=== PATIENT | female | born 1960 | race Caucasian/White ===

== ENCOUNTER 2019-06-08 08:42 | Emergency (ER) | payer BC, SELFPAY ==
[2019-06-08 08:46] VITALS: BP 137/87; PULSE 96; RESP 18; TEMP 36.4; O2SAT 100
[2019-06-08 09:07] LABS: Clarity Clear (Clear); Leukocyte Esterase Color Interference (Negative); Nitrite Color Interference (Negative); Specific Gravity 1.012 (1.005-1.025)
[2019-06-08 09:08] LABS: Bilirubin Color Interference (Negative); Blood Color Interference (Negative); Glucose Color Interference mg/dL (Negative); Ketones Color Interference mg/dL (Negative); Urobilinogen Color Interference EU/dL (Up TO 0.2)
--- NOTE | 2019-06-08 09:08 | ED.GENADUL_ITS ---
Discharge Plan Disposition Patient Disposition: HOME Condition: Good Discharge Details Chief Complaint: FlankPain Clinical Impression: Acute pyelonephritis Primary Care Provider: Unknown,Unknown ED Provider: Nidhi Pena Home Meds and New Rx's Prescriptions: New cephalexin [Keflex] 500 mg capsule 500 mg PO QID Qty: 40 RF: 0 phenazopyridine [Pyridium] 200 mg tablet 200 mg PO TID PRN (Reason: pain) Qty: 6 RF: 0 Discharge Instructions Instructions: Urinary Tract Infection in Women (ED) Additional Instructions: Drink plenty of water. Rest activities as tolerated. Use antibiotics as prescribed. Next line follow-up promptly with your primary care doctor for reevaluation. Use Pyridium for comfort as discussed for the next 2 days. This will stain your urine a reddish-orange color. Urine culture pending. Return for any worsening, alarming symptoms or concerns sooner if needed. Make follow-up appoint with your primary care doctor for the next 2 to 3 days for reevaluation. Discharge Data Discharge Date/Time-TO BE ENTERED AT DEPARTURE: 06/08/19 11:41 Medical Decision Making Very pleasant 58-year-old woman who presents for left flank pain. Patient reports onset of urinary urgency and frequency, dysuria noted last evening associated with mild suprapubic discomfort. Patient reports she awoke this morning with onset of left flank pain. Patient reports the flank pain is quite sharp and uncomfortable. Patient has no history of urinary infection or kidney stone. Patient denies ill feeling, fever, chills, nausea, vomiting. Eating and drink without difficulty. Patient's urinalysis reveals a urinary tract infection which is consistent with patient's history. CT scan ordered. Toradol provided for comfort as well as IV fluid. Patient feeling significantly improved after Toradol. CT scan reveals normal kidneys with no obvious hydronephrosis or hydroureter. No stones present. Ureters are somewhat limited without contrast evaluation. Patient has incidental findings of an enlarged fibroid uterus. Given lack of obstruction noted on CT scan I do feel it is appropriate to treat this patient for an acute pyelonephritis. Patient has no systemic symptoms at this time therefore I feel outpatient management is totally appropriate. Nuha ent was provided Rocephin 1 g in the emergency room and plan of care includes a prescription for Keflex 4 times daily in addition to Pyridium for comfort. Patient agrees with this plan of care. The patient was stable and requested discharge. Prior to discharge, my usual and customary return precautions were reviewed with the patient - this included follow-up instructions and reasons to return to the Emergency Department if conditions worsens, does not improve as expected, or other new concerns arise. HPI General Date/Time Provider Initiated Documentation: 06/08/19 09:04 . HPI Narrative: This is a 58-year-old patient who is quite pleasant who presents for complaints of left flank pain which began today. Patient reports this pain was preceded by urinary discomfort, urgency and frequency with very mild suprapubic discomfort yesterday. Patient reports she did take rahu-sha-rudbifv urinary tract infection testing which was positive as well as she began Azo [id number]-[id number] which she reports was somewhat relieving of her pain and allowed her some sleep last night. Patient denies fevers, chills, nausea, vomiting associated. Patient denies malaise or ill feeling. Patient is eating and drinking without difficulty. No significant change in bowel movements. Patient denies hematuria. No vaginal discharge or bleeding. Patient recently finished menstruating approximately 1 week ago. Patient denies any other concerns or complaints at this time. No history of UTI in the past Related Data Home Medications Medication Instructions Recorded Confirmed cephalexin [Keflex] 500 mg PO QID #40 cap 06/08/19 phenazopyridine [Pyridium] 200 mg PO TID PRN #6 tab 06/08/19 Previous Rx's Medication Instructions Recorded cephalexin [Keflex] 500 mg PO QID #40 cap 06/08/19 phenazopyridine [Pyridium] 200 mg PO TID PRN #6 tab 06/08/19 Allergies Allergy/AdvReac Type Severity Reaction Status Date / Time No Known Allergies Allergy Unverified 06/08/19 08:49 General Stated Complaint: FlankPain FAHEEM: 3 Review of Systems All systems reviewed & are unremarkable except as noted in HPI and below Constitutional Constitutional: Denies chills, Denies fatigue, Denies fever(s), Denies headache(s) and Denies malaise ENT Ears, Nose, Mouth, and Throat: Denies headache(s) Gastrointestinal Gastrointestinal: Denies abdominal pain, Denies diarrhea, Denies nausea and Denies vomiting Genitourinary Genitourinary: Reports dysuria, Reports flank pain, Reports urinary urgency and Denies vaginal discharge Neurologic Neurologic: Denies headache(s) Endocrine Endocrine: Denies fatigue [facility] Surgical History (Updated 05/02/18 @ 14:37 by [employer]) Augmentation mammoplasty (~1993) Dilation and curettage after loss Family History Mother Diabetes Colon cancer Social History Smoking/Tobacco Use Status: Never Alcohol Intake: current Alcohol Intake frequency: a few times a month Drug use: Never Substance use type: does not use Do you feel safe at home: Yes Do you feel safe in your relationship?: Yes Exam Narrative Exam Narrative: CONST: Healthy appearing patient, in no acute distress. Well hydrated. Alert and alert. NECK: Normal visual inspection. FROM. No lymphadenopathy. Trachea midline. No Midline tenderness. CHEST: Normal insepection of the chest. RESP: Normal respiratory effort. Speaking full sentences. No cough. No wheezing. No retractions. Clear to auscaltation. Breath sound equal and present bilaterally. CARDIO: No JVD. Normal PMI. Regular Rate. Regular Rhythm. Normal peripheral pulses. GI: Normal inspection of abdomen. No distension. Soft. Nontender. Bowel sounds present in all 4 quadrants. No rebound. No gaurding. Back: Left CVA tenderness noted on exam. No right CVA tenderness MUSCULOSKELETAL: Normal Gait. FROM of all extremities. Distal neurovascularly intact. Sensation intact distally. SKIN: Normal. Dry. No rashes. NEURO: Alert and awake. Speech clear. PSYCH: Normal affect. Cooperative. Course Vital Signs Vital signs: Vital Signs Temperature 36.4 C 06/08/19 08:46 Pulse 96 H 06/08/19 08:46 Respiratory Rate 18 06/08/19 08:46 Blood Pressure 137/87 06/08/19 08:46 Pulse Oximetry 100 06/08/19 08:46 Temperature 36.4 C 06/08/19 08:46 Temperature Source Skin 06/08/19 08:46 Pulse 96 H 06/08/19 08:46 Respiratory Rate 18 06/08/19 08:46 Respiratory Effort Non-Labored 06/08/19 08:50 Blood Pressure 137/87 06/08/19 08:46 Blood Pressure Position Sitting 06/08/19 08:46 Pulse Oximetry 100 06/08/19 08:46 Oxygen Delivery Method Room Air 06/08/19 08:46 Oxygen Flow Rate 0 06/08/19 08:46 Pain Level 7 06/08/19 08:50 Lab/Test Results Lab/Test Results: Laboratory Tests Range/Units 06/08/19 08:57 Urine Color (Yellow) [place] Urine Clarity (Clear) Clear Urine pH Not Applicable Ur Specific [place] (1.005-1.025) 1.012 Urine Protein (Negative) mg/dL Color interference Urine Ketones (Negative) mg/dL Color interference Urine Blood (Negative) Color interference Urine Nitrite (Negative) Color interference Urine Bilirubin (Negative) Color interference Urine Urobilinogen (Up TO 0.2) EU/dL Color interference Ur Leukocyte Esterase (Negative) Color interference Urine Glucose (Negative) mg/dL Color interference
[2019-06-08 09:16] LABS: Bacteria Moderate HPF (Negative); C & S Indicated? Yes; Casts Negative LPF (Negative); Crystals Negative HPF (Negative); Epithelial Cells Few HPF (Negative); Mucus Trace (Negative); Other Cells Few Renal (Negative); WBC >50 HPF (0-5)
[2019-06-08] MEDS: Ketorolac 15 MG/ML VIAL IVP (09:22)
[2019-06-08] MEDS: Normal Saline Flush 10 ML SYR IVP (09:23)
[2019-06-08] MEDS: Normal Saline 1,000 ML 1000 ML IV (09:23)
[2019-06-08 09:25] LABS: Abs Immature Grans 0.02 k/cumm (0.0-0.09); Absolute Basophil Count 0.04 k/cumm (0.0-0.2); Absolute Eosinophil Count 0.05 k/cumm (0.0-0.7); Absolute Neutrophil Count 7.06 k/cumm (1.2-6.7); Basophils % 0.4; Eosinophils % 0.6; HCT 33.1 % (36.0-46.0); HGB 10.6 g/dL (12.0-15.5); Immature Grans % 0.2; Lymphocytes % 12.1; Mean Corpuscular Hemoglobin 25.6 pg (27.0-33.0); Mean Platelet Volume 9.2 fL (8.0-11.0); Monocytes % 8.8; Neutrophils % 77.9; Platelet Count 400 x1000/uL (130-400); RBC 4.14 m/cumm (4.00-5.20); White Blood Cell Count 9.07 k/cumm (4.4-10.8)
[2019-06-08 09:37] LABS: ALT 18 U/L (14-59); AST 16 U/L (15-37); Albumin 4.1 g/dL (3.4-5.0); Alkaline Phosphatase 47 U/L (46-116); Anion Gap 9.8 mmol/L (3-11); BUN 16 mg/dL (7-18); Bilirubin, Total 0.3 mg/dL (0.2-1.0); CO2 28.2 mmol/L (21.0-32.0); CREATININE 0.93 mg/dL (0.55-1.02); Calcium 9.2 mg/dL (8.5-10.1); Chloride 102 mmol/L (98-107); Glucose 92 mg/dL (74-106); Potassium 3.5 mmol/L (3.5-5.1); Sodium 140 mmol/L (136-145); Total Protein 8.2 g/dL (6.4-8.2)
[2019-06-08] MEDS: cefTRIAXone 1 GM/50 ML BAG 100 GM (09:48)
--- NOTE | 2019-06-08 10:00 | DI.CT_ITS ---
EXAM: CT ABDOMEN PELVIS WO CLINICAL HISTORY: left flank pain TECHNIQUE: Noncontrast COMPARISON: No exams were available for comparison FINDINGS: No renal, ureteral or bladder calculi are seen. There is no evidence of hydronephrosis. The bladde r is unremarkable. The uterus is markedly enlarged, consistent with fibroids. Lung bases are clear. The heart size is normal. The liver, gallbladder, spleen, pancreas and adrenals are unremarkable. There is no bowel dilatation or inflammatory change. The appendix appears normal. IMPRESSION: Enlarged uterus presumably secondary to multiple fibroids. No acute abnormality is seen.
--- NOTE | 2019-06-08 10:25 | DI.VRAD_ITS ---
PROCEDURE INFORMATION: Exam: CT Abdomen And Pelvis Without Contrast Exam date and time: 06/08/2019 9:09 AM Age: 58 years old Clinical history: Other: Left flank pain TECHNIQUE: Imaging protocol: Computed tomography of the abdomen and pelvis without contrast. Radiation optimization: All CT scans at this facility use at least one of these dose optimization techniques: automated exposure control; mA and/or kV adjustment per patient size (includes targeted exams where dose is matched to clinical indication); or iterative reconstruction. COMPARISON: No relevant prior studies available. FINDINGS: Liver: Unremarkable. No mass. Gallbladder and bile ducts: Unremarkable. No calcified stones. No ductal dilation. Pancreas: Unremarkable. No ductal dilation. Spleen: Unremarkable. No splenomegaly. Adrenals: Unremarkable. No mass. Kidneys and ureters: The kidneys are normal for the noncontrast appearance. There is no hydronephrosis or hydroureter. No stones. the ureters are difficult to evaluate without the use of contrast. Stomach and bowel: Unremarkable. No obstruction. No mucosal thickening. Appendix: No evidence of appendicitis. Intraperitoneal space: Unremarkable. No free air. No significant fluid collection. Vasculature: Scattered pelvic phleboliths. Lymph nodes: Unremarkable. No enlarged lymph nodes. Bladder: Unremarkable as visualized. Reproductive: Markedly enlarged fibroid uterus with limited evaluation due to lack of intravenous contrast. The largest fibroid appears to measure approximately 10 cm in axial dimension. The adnexa appear normal. Bones/joints: Unremarkable. No acute fracture. Soft tissues: Unremarkable. IMPRESSION: 1. Limited evaluation of an enlarged fibroid uterus. 2. No apparent urolithiasis. Dictated and Authenticated by: Ever Leong MD. Ordering:MARKO Terrell MD
[2019-06-08 11:37] VITALS: BP 124/72; PULSE 82; RESP 18; TEMP 36.6; O2SAT 100
== END 2019-06-08 11:41 | disposition home or self-care (01) ==
PROVIDERS: Emergency Provider Physician Assistant
DX: M54.5 Low back pain (principal); R30.0 Dysuria; R35.0 Frequency of micturition; N10 Acute pyelonephritis; B96.20 Unspecified Escherichia coli [E. coli] as the cause of diseases classified elsewhere
CPT/HCPCS: 36415; 80053; 87077; 96361; 96365; 96375; 99284; 74176; 81003; 81015; 85025; 87086; 87186; J0696; J1885

== ENCOUNTER 2019-07-15 12:07 | Outpatient (REF) | payer BC, SELFPAY ==
[2019-07-15 19:47] LABS: Anion Gap 9.6 mmol/L (3-11); BUN 12 mg/dL (7-18); CO2 27.4 mmol/L (21.0-32.0); CREATININE 0.69 mg/dL (0.55-1.02); Calcium 8.6 mg/dL (8.5-10.1); Calculated LDL 105 mg/dL; Chloride 105 mmol/L (98-107); Cholesterol 180 mg/dL (<200); Glucose 83 mg/dL (74-106); HDL Cholesterol 60 mg/dL (40-60); Potassium 3.7 mmol/L (3.5-5.1); Sodium 142 mmol/L (136-145); TSH (W/Ref FT4) 0.89 uIU/mL (0.36-3.74); Triglyceride 76 mg/dL (<150)
== END 2019-07-15 12:27 ==
LOC: NCHCN 12:07
PROVIDERS: Visit Provider Nurse Practitioner Family
DX: Z00.00 Encounter for general adult medical examination without abnormal findings (principal); Z13.29 Encounter for screening for other suspected endocrine disorder; Z13.220 Encounter for screening for lipoid disorders; Z13.228 Encounter for screening for other metabolic disorders
CPT/HCPCS: 80048; 80061; 84443

== ENCOUNTER 2019-08-12 01:35 | Outpatient (CLI) | payer BC, SELFPAY ==
--- NOTE | 2019-08-12 13:23 | DI.MAMMO_ITS ---
EXAM: MAMMO SCREENING CLINICAL HISTORY: SCREENING, Z12.39. TECHNIQUE: Full field digital CC and MLO mammographic images were obtained with 3D tomosynthesis and utilizing computer aided detection (CAD). COMPARISON: . 2009 through 2015 FINDINGS: Breast Density - Category C - Heterogeneously dense tissue which may decrease the sensitivity of the mammogram. Implant displaced views were performed in addition to the routine views the bilateral failing implant s are intact and unchanged. Masses/Architectural Distortion: None seen. Microcalcifications: No suspicious pleomorphic-type calcifications are seen. Skin Thickening/Nipple Retraction: None. Axilla: Unremarkable. IMPRESSION: 1. BI-RADS category 1, negative. No significant interval change with no specific features of maligna ncy noted. 2. Unless there is more urgent need, screening mammography is recommended, as per [employer] guidelines. A negative radiographic report should not delay biopsy if a dominant or clinically suspicious mass is present. Up to ten percent of cancers are not identified on mammography. A negative report may reinforce clinical impression. Adenosis and dense breasts may obscure an underlying neoplasm. False positive reports average 6 to 10%. Patient will receive a letter notifying them of these results.
== END 2019-08-12 01:55 ==
PROVIDERS: PCP Nurse Practitioner Family; Visit Provider Nurse Practitioner Family
DX: Z12.31 Encounter for screening mammogram for malignant neoplasm of breast (principal)
CPT/HCPCS: 77063; 77067

== ENCOUNTER 2019-08-21 02:23 | Outpatient (CLI) | payer BC, SELFPAY ==
--- NOTE | 2019-08-21 12:58 | DI.US_ITS ---
EXAM: US PELVIS TRANSVAGINAL CLINICAL HISTORY: ABNORMAL UTERINE BLEEDING, FIBROID UTERUS, D25.9 LEIOMYOMA OF UTERUS. TECHNIQUE: Ultrasound of the pelvic, both abdominal and transvaginal was performed using standard pr otocol. COMPARISON: CT ABDOMEN PELVIS WO from 06/08/2019 FINDINGS: KIDNEYS: Kidneys are symmetric in size. No evidence of renal calculi. No evidence of hydronephrosis. No renal mass or cyst identified. UTERUS: Position: Anteverted. Size: 13.1 x 8.4 x 8.6 cm Endometrium: There is a 9.3 x 8.3 x 7.6 cm mass centered in the fundal endometrium. This may represe nt a uterine fibroid but an endometrial mass cannot be excluded. Myometrium: See above Cervix: Cervical nabothian cysts. OVARIES: Right: Not visualized transabdominally or transvaginally. No adnexal masses identified. Left: Not visualized transabdominally or transvaginally. No adnexal masses identified. CUL-DE-SAC: Free fluid: None. IMPRESSION: 1. Normal sonographic appearance of the kidneys. 2. Enlarged uterus with a 9.3 x 8.3 x 7 cm mass in the fundal region. This may represent a uterine f ibroid but an endometrial mass cannot be excluded. MRI may be considered for further evaluation. 3. Ovaries not visualized transabdominally or transvaginally.
== END 2019-08-21 02:43 ==
PROVIDERS: PCP Nurse Practitioner Family; Visit Provider Obstetrics & Gynecology Gynecology
DX: N93.9 Abnormal uterine and vaginal bleeding, unspecified (principal); D25.9 Leiomyoma of uterus, unspecified; N85.2 Hypertrophy of uterus
CPT/HCPCS: 76830; 76856

== ENCOUNTER 2019-08-30 16:00 | Outpatient (REF) | payer BC, SELFPAY ==
--- NOTE | 2019-08-30 15:20 | ENDOMET_PTH ---
PATIENT: Anel Degroot LOC: [facility] U#:[id number] AGE/SX: 58/F ROOM: RE08/30/[address]: Marily Hart : 1960 BED: DIS: 08/30/2019 SPEC #: [id number] RECD: 08/30/19 17:21 STATUS: JUNAID RENellie #: [id number] JAY: 08/30/19 15:[address]: Marily Hart DEPT: Surgical Specimen RECD BY: Debbie Kong ENTERED: 08/30/19 17:22 SP TYPE: Endomet OTHR DR: Analy Crowe Tissues: 1 - ENDOMETRIUM BX/BEKAHETTE Procedures: GROSS AND MICRO LEVEL 4 Comments: [id number]
== END 2019-08-30 16:20 ==
LOC: LBN 16:00
PROVIDERS: PCP Nurse Practitioner Family; Visit Provider Obstetrics & Gynecology Gynecology
DX: N85.01 Benign endometrial hyperplasia (principal); N93.9 Abnormal uterine and vaginal bleeding, unspecified
CPT/HCPCS: 88305

== ENCOUNTER 2019-10-18 16:06 | Outpatient (REF) | payer BC, SELFPAY ==
[2019-10-21 18:58] LABS: SARS-CoV-2 RNA Undetected (Undetected); SARS-CoV-2 Specimen Source Nasopharynx
== END 2019-10-18 16:26 ==
LOC: NCHCN 16:06
PROVIDERS: PCP Nurse Practitioner Family; Visit Provider Physician Assistant
DX: R05 Cough (principal)
CPT/HCPCS: U0003

== ENCOUNTER 2020-08-07 15:18 | Outpatient (REF) | payer BC, SELFPAY ==
--- NOTE | 2020-08-07 09:30 | PAPFT_PTH ---
PATIENT: Anel Degroot LOC: [facility]#:[id number] AGE/SX: 59/F ROOM: RE08/07/[address]: Analy Crowe : 1960 BED: DIS: 08/07/2020 SPEC #: [id number] RECD: 08/07/20 17:05 STATUS: JUNAID SIMEON #: [id number] JAY: 08/07/20 09:[address]: Analy Crowe DEPT: [facility] Cytology RECD BY: Debbie Kong Tissues: 1 - CX/ENDOCX FOR PAP SMEARS Procedures: PAP THIN PREP/UVM Screening HPV DNA PROBE Comments: [id number] (CHLAMYDIA/GC) (HPV 16/ 18/45)
[2020-08-10 14:25] LABS: Chlamydia Result Negative (Negative); GC Result Negative (Negative)
== END 2020-08-07 15:38 ==
LOC: NCHCN 15:18
PROVIDERS: PCP Nurse Practitioner Family; Visit Provider Nurse Practitioner Family
DX: Z12.4 Encounter for screening for malignant neoplasm of cervix (principal); Z00.00 Encounter for general adult medical examination without abnormal findings; Z11.51 Encounter for screening for human papillomavirus (HPV); R87.810 Cervical high risk human papillomavirus (HPV) DNA test positive; Z11.3 Encounter for screening for infections with a predominantly sexual mode of transmission
CPT/HCPCS: 87491; 87591; 88142; 87624

== ENCOUNTER 2021-08-26 18:13 | Outpatient (REF) | payer BC, SELFPAY ==
--- NOTE | 2021-08-26 16:00 | PAPFT_PTH ---
PATIENT: Anel Degroot LOC: [facility] U#:[id number] AGE/SX: 60/F ROOM: RE08/26/[address]: Analy Crwoe : 1960 BED: DIS: 08/26/2021 SPEC #: [id number] RECD: 08/26/21 18:20 STATUS: JUNAID RENellie #: [id number] JAY: 08/26/21 16:[address]: Analy Crowe DEPT: [facility] Cytology RECD BY: Debbie Kong Tissues: 1 - CX/ENDOCX FOR PAP SMEARS Procedures: PAP THIN PREP/UVM Screening HPV DNA PROBE Comments: [id number]
== END 2021-08-26 18:14 | disposition home or self-care (01) ==
LOC: LBN 18:13
PROVIDERS: PCP Nurse Practitioner Family; Visit Provider Nurse Practitioner Family
DX: Z12.4 Encounter for screening for malignant neoplasm of cervix (principal); Z11.51 Encounter for screening for human papillomavirus (HPV)
CPT/HCPCS: 88142; 87624

== ENCOUNTER → 2022-02-16 01:31 | Outpatient (CLI) | payer MEDICAID, SELFPAY ==
--- NOTE | 2022-02-16 | DI.MAMMO_ITS ---
Exam(s) MG MAMMO SCREENING 60 MIN DUR EXAM: MG MAMMO SCREENING 60 MIN DUR CLINICAL HISTORY: SCREENING FOR BREAST CANCER Z12.39, HAS IMPLANTS TECHNIQUE: Bilateral full field digital CC and MLO mammographic images were obtained with 3D tomosyn thesis and utilizing computer aided detection (CAD). Implant displaced views were performed in additi on to the routine views. COMPARISON: 2012 through 2019 FINDINGS: Masses/Architectural Distortion: None seen. Microcalcifications: No suspicious pleomorphic-type are seen. Skin Thickening/Nipple Retraction: None. Bilateral saline implants are intact. IMPRESSION: 1. No significant interval change with no specific features of malignancy noted. 2. Unless there is more urgent need, screening mammography is recommended, as per [place] [employer] guidelines. BI-RADS Category 1 - Negative Breast Density - Category B - Scattered areas of fibroglandular density A negative radiographic report should not delay biopsy if a dominant or clinically suspicious mass is present. Up to ten percent of cancers are not identified on mammography. A negative report may reinforce clinical impression. Adenosis and dense breasts may obscure an underlying neoplasm. False positive reports average 6 to 10%. Patient will receive a letter notifying them of these results.
== END ==
PROVIDERS: PCP Nurse Practitioner Family; Visit Provider Nurse Practitioner Family
DX: Z12.31 Encounter for screening mammogram for malignant neoplasm of breast (principal); Z98.82 Breast implant status
CPT/HCPCS: 77063; 77067

== ENCOUNTER 2023-10-06 12:53 | Outpatient (REF) | payer MEDICAID, SELFPAY ==
[2023-10-06 16:28] LABS: ALT 22 U/L (14-59); AST 15 U/L (15-37); Albumin 4.3 g/dL (3.4-5.0); Alkaline Phosphatase 50 U/L (46-116); BUN 28 mg/dL (7-18); Bilirubin, Total 0.4 mg/dL (0.2-1.0); CREATININE 0.9 mg/dL (0.55-1.02); Calcium 9.6 mg/dL (8.5-10.1); Calculated LDL 126 mg/dL (<100); Chloride 107 mmol/L (98-107); Cholesterol 208 mg/dL (<200); Estimated GFR 73.19 (mL/min/1.73m2); Glucose 86 mg/dL (74-106); HDL Cholesterol 62 mg/dL (40-60); Potassium 4.4 mmol/L (3.5-5.1); Sodium 145 mmol/L (136-145); Total Protein 7.8 g/dL (6.4-8.2); Triglyceride 104 mg/dL (<150)
== END 2023-10-06 12:54 | disposition home or self-care (01) ==
LOC: NCHCN 12:53
PROVIDERS: PCP Nurse Practitioner Family; Visit Provider Nurse Practitioner Family
DX: Z13.6 Encounter for screening for cardiovascular disorders (principal); Z13.228 Encounter for screening for other metabolic disorders; Z13.29 Encounter for screening for other suspected endocrine disorder
CPT/HCPCS: 80053; 80061; 84443

== ENCOUNTER → 2024-02-19 01:58 | Outpatient (CLI) | payer MEDICAID, SELFPAY ==
--- NOTE | 2024-02-19 | DI.MAMMO_ITS ---
Exam(s) MG MAMMO SCREENING 60 MIN DUR EXAM: MG MAMMO SCREENING 60 MIN DUR CLINICAL HISTORY: Screening, Z12.31. TECHNIQUE: Bilateral full field digital CC and MLO mammographic images were obtained with 3D tomosyn thesis and utilizing computer aided detection (CAD). Conventional and implant displacement were performed. COMPARISON: Prior mammograms were reviewed. FINDINGS: Again noted are bilateral retropectoral saline implants which appear intact No new left breast findings. In the right breast there is a asymmetric density-possible nodule which measures approximately 10 by 8 mm which has appearance of possible benign intramammary lymph node but appears more prominent than on prior mammograms. There are no malignant-appearing microcalcification groups in this region nor elsewhere in either rolly ast. A biopsy marker device is seen medial of center in the right breast, unchanged There is no significant architectural distortion nor skin thickening-retraction. IMPRESSION: 1. No radiographic evidence of malignancy in left breast. 2. Asymmetric density-possible nodule upper-outer quadrant right breast which has appearance of proba ble benign lymph node but appears to have increased in size from previous. Spot compression view and ultrasound recommended. BI-RADS Category 0 - Incomplete: Need additional imaging evaluation Breast Density - Category B - Scattered areas of fibroglandular density Breast density Category C or D implies that the patient has dense breast tissue. Dense breast tissue can make it harder to find cancer on a mammogram. Dense breast tissue is also associated with an incr eased risk of breast cancer. This information about the result of the mammogram report was provided to the patient to raise their awareness. Use this report when you speak with the patient about their risks for breast cancer, which includes their family history. At that time, you may recommend additional screening tests (Ultrasoun d or MRI) as these tests may add significant information. A negative radiographic report should not delay biopsy if a dominant or clinically suspicious mass is present. Up to ten percent of cancers are not identified on mammography. A negative report may reinforce clinical impression. Adenosis and dense breasts may obscure an underlying neoplasm. False positive reports average 6 to 10%. Patient will receive a letter notifying them of these results.
== END ==
PROVIDERS: Visit Provider Nurse Practitioner Family
DX: Z12.31 Encounter for screening mammogram for malignant neoplasm of breast (principal); Z98.82 Breast implant status; R92.8 Other abnormal and inconclusive findings on diagnostic imaging of breast
CPT/HCPCS: 77063; 77067

== ENCOUNTER → 2024-02-21 00:53 | Outpatient (CLI) | payer MEDICAID, SELFPAY ==
--- NOTE | 2024-02-21 | DI.US_ITS ---
Exam(s) MG MAMMO SCREEN CALL BACK UNI US BREAST RT COMPLETE EXAM: MG MAMMO SCREEN CALL BACK UNI-RIGHT AND COMPLETE RIGHT BREAST ULTRASOUND CLINICAL HISTORY: Asymmetric density-possible nodule, rt breast, 10 x 8 mm,. TECHNIQUE: Unilateral RIGHT BREAST spot mammographic images obtained with 3D tomosynthesisand utiliz ing computer aided detection (CAD). . Complete RIGHT breast Ultrasound was also performed, including all 4 quadrants, the retroareolar irene on, and the ipsilateral axilla. COMPARISON: Prior mammograms were reviewed. This additional imaging was performed due to findings described on the recent screening mammogram of 02/19/2024. FINDINGS: DIAGNOSTIC MAMMOGRAM: Additional mammographic views performed todayreveals the nodule to persist. We proceeded with ultras ound COMPLETE RIGHT BREAST ULTRASOUND: Ultrasound performed today reveals intact appearing saline prosthesis.. There is a small 3 millimete r benign microcyst seen at 12 o'clock position. More posteriorly at the 11 o'clock position there is a lobulated wider than taller nodule which appea rs partially solid partially cystic measuring 10 x 5 mm and corresponding to the finding on the mammo gram. Exhibits slightly increased through transmission. No decreased through transmission. Possibl e hemorrhagic cyst or partially cystic fibroadenoma. Does not have the appearance of a typical benig n intramammary lymph node. Scanning of the ipsilateral axilla reveals no significant adenopathy. IMPRESSION: 1. There is a 10 x 5 mm either partially hemorrhagic cyst or partially solid partially cystic lobula jacki nodule at the 11 o'clock position of the right breast, this corresponding to the finding on the r ecent mammogram. Appropriate follow-up as discussed by myself with the patient today is repeat right breast imaging in 3 months to include repeat right breast mammogram and ultrasound. The patient was informed of these findings and recommendations by myself prior to leaving the departm ent today. BI-RADS Category 3 - 3 month - Probably Benign Finding: Recommend follow-up mammography and ultrasoun d in 3 months Breast Density - Category B - Scattered areas of fibroglandular density Breast density Category C or D implies that the patient has dense breast tissue. Dense breast tissue can make it harder to find cancer on a mammogram. Dense breast tissue is also associated with an incr eased risk of breast cancer. This information about the result of the mammogram report was provided to the patient to raise their awareness. Use this report when you speak with the patient about their risks for breast cancer, which includes their family history. At that time, you may recommend additional screening tests (Ultrasoun d or MRI) as these tests may add significant information. A negative radiographic report should not delay biopsy if a dominant or clinically suspicious mass is present. Up to ten percent of cancers are not identified on mammography. A negative report may reinforce clinical impression. Adenosis and dense breasts may obscure an underlying neoplasm. False positive reports average 6 to 10%. Patient will receive a letter notifying them of these results.
== END ==
PROVIDERS: Visit Provider Nurse Practitioner Family
DX: R92.8 Other abnormal and inconclusive findings on diagnostic imaging of breast (principal); N63.11 Unspecified lump in the right breast, upper outer quadrant
CPT/HCPCS: 76642; 77063; 77067

== ENCOUNTER 2024-05-22 12:12 | Outpatient (REF) | payer MEDICAID, SELFPAY ==
--- OUTSIDE RECORDS SUMMARY | 2024-05-22 12:14 | XMS_ITS | Clinical Summary ---
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 Name Role Phone Unknown, Provider Primary Care Provider Unava ilable Social History Tobacco Use Types Packs/Day Years Used Date Smoking Tobacco: Never Assessed Sex and Gender Information Value Date Recorded Sex Assigned at Not on file Gender Identity Not on file Sexual Orientation Not on file Plan of Treatment Health Maintenance Due Date Last Done Comments Hepatitis C Screen 1960 RSV Immunization ( o r 60+ Years) (1 - 1-dose 60+ series) 2022 COVID-19 Vaccine (2022-24 season) 2023 Care Teams Wrap Knitting Machine Operator Relationship Specialty Start Date End Date Unknown, Provider, PCP - General 06/07/15
--- OUTSIDE RECORDS SUMMARY | 2024-05-22 12:14 | XMS_ITS | Referral Summary ---
Author Organization [facility] Address [address] [place] [address] Care Team Providers Care Yardage Control Operator Name Role Phone Unknown, Provider Primary Care Provider Unava ilable Social History Tobacco Use Types Packs/Day Years Used Date Smoking Tobacco: Never Assessed Sex and Gender Information Value Date Recorded Sex Assigned at Not on file Gender Identity Not on file Sexual Orientation Not on file Plan of Treatment Not on file Care Teams Yardage Control Operator Relationship Specialty Start Date End Date Unknown, Provider, PCP - General 06/07/15
--- OUTSIDE RECORDS SUMMARY | 2024-05-22 12:15 | XMS_ITS | Encounter Summary ---
Author Organization [facility] Address [address] [place] [address] Care Team Providers Care Wilderness Guide Name Role Phone Unknown, Provider Primary Care Provider Zandrava ilable Encounter Details Date Type Department Care Team (Late st Contact Info) Description 08/31/2019 Lab Requisition [facility] Pathology & Laboratory Medicine - [address] [address] Marily Cary MD [address] [place] [address],[address] [place] [address] [phone] Encounter for other general examination Social History Tobacco Use Types Packs/Day Years Used Date Smoking Tobacco: Never Assessed Sex and Gender Information Value Date Recorded Sex Assigned at Not on file Gender Identity Not on file Sexual Orientation Not on file documented as of this encounter Plan of Treatment Not on file documented as of this encounter Procedures Procedure Name Priority Date/Time Associated Diagnosis Comments SURGICAL PATHOLOGY Today 08/30/2019 15 :20 EST Encounter for other general examination documented in this encounter Results * SURGICAL PATHOLOGY (08/30/2019 15:20 EST) Final Diagnosis A. ENDOMETRIUM, BIOPSY: - Strips and weakly proliferative endometrium. See comment. 09/02/2019 16:08 [facility] at 1608 Diagnosis Comment The paucity of intact fragments precludes femvi-xj-skoltg ratio assessment. No cytologic atypia is seen. 09/02/2019 16:08 [facility] Clinical History Abnormal uterine bleeding 09/02/2019 16:08 [facility] Attestation By the signature below, the attending physician certifies that they have 1) personally conducted a gross and/or microscopic examination of the described specimen(s), and/or personally interpreted the results of laboratory testing of the described specimen(s), and 2) personally rendered or confirmed the above diagnosis. 09/02/2019 16:08 [facility] at 1608 Gross Description A. Received in formalin labelled with proper patient identification (initials C, R) and endometrium is an aggregate of soft red-brown tissue (1.4 x 1.4 x 0.4 cm). Entirely submitted in A1 and A2. Fabby Nieves 08/31/2019 09:53 09/02/2019 16:08 [facility] Resident/Adis w: Camelia Monzon MD 09/02/2019 16:08 [facility] Scanned Images 09/02/2019 16:08 [facility] Tissue ENTIRE ENDOMETRIUM / Unknown 08/30/2019 15:20 EST 08/31/2019 7:13 EST Marily Cary MD PATHOLOGY ORDERABLES Performing Organization Address City/State/[facility] Co de Phone Number [facility] [address] [place] [address] documented in this encounter Visit Diagnoses Diagnosis Encounter for other general examination documented in this encounter Care Teams Wilderness Guide Relationship Specialty Start Date End Date Unknown, Provider, PCP - General 06/07/15 documented as of this encounter
--- OUTSIDE RECORDS SUMMARY | 2024-05-22 12:15 | XMS_ITS | Encounter Summary ---
Author Organization [facility] Address [address] [place] [address] Care Team Providers Care Workforce Management Coordinator Name Role Phone Unavailable Primary Care Provider Unavailabl e Encounter Details Date Type Department Care Team (Late st Contact Info) Description 03/16/2010 Results Only [facility] Laboratory Services - [facility] [place] [address] [place] [address] [phone] Xin Turner MD [address] [place] [address] [place] [address] Social History Tobacco Use Types Packs/Day Years Used Date Smoking Tobacco: Never Assessed Sex and Gender Information Value Date Recorded Sex Assigned at Not on file Gender Identity Not on file Sexual Orientation Not on file documented as of this encounter Plan of Treatment Not on file documented as of this encounter Procedures Procedure Name Priority Date/Time Associated Diagnosis Comments HPV DETECTION, HIGH RISK TYPES Routine 03/16/2010 14:24 EDT CYTOPATHOLOGY Routine 03/16/2010 0:00 EDT documented in this encounter Results * HUMAN PAPILLOMA VIRUS DNA TEST (03/16/2010 14:24 EDT) Specimen Description Cervix, ThinPrep vial [facility] Result Quantity not sufficient. Credit Issued [facility] Report Status Final 03/24/2010 [facility] 03/16/2010 14:2 4 EDT 03/19/2010 14:24 EDT Xin Turner MD MICROBIOLOGY - GENER AL ORDERABLES [facility] [address] [place] [address] * CYTOPATHOLOGY (03/16/2010 0:00 EDT) Pathology Report: CYTOPATHOLOGY REPORT ? Reports generated via electronic interface contain original data; ? however they are lacking the format of the original report. ? Caution should be taken when reading/interpreti ng unformatted reports. ? Name: ? EBONI GARCIA ? Accession #: ? [id number] ? : ? 1960 (Age: 49) ??F ?Collect Date: ? 03/16/2010 ? Location: ? [facility] ? Receive Date: ? 03/17/2010 ? Provider: ?XIN SANIA MD ? Copy to: ? Specimen/Source: ?Pap Test, Cervix/Endocervix, ThinPrep Imaging System ? with manual evaluation ? Last Menstrual Period: ? 08/21/10 ? Other: ? HPVDX - HPV testing requested regardless of diagnosis on current ThinPrep Pap ?? test. ? SPECIMEN ADEQUACY ? Satisfactory for Evaluation ? - transformation zone component present ? GENERAL CATEGORIZATION ? Negative for Intraepithelial Lesion or Malignancy ? Document reviewed and electronically signed by: ? Lynan Hugo, CT(ASCP) ? Report Date: ??03/19/2010 11:01 ? End of Report ? [facility] 03/16/2010 03/17/2010 Xin Turner MD PATHOLOGY ORDERABLES [facility] [address] [place] [address] documented in this encounter Visit Diagnoses Not on filedocumented in this encounter
--- OUTSIDE RECORDS SUMMARY | 2024-05-22 12:15 | XMS_ITS | Encounter Summary ---
Author Organization [facility] Address [address] [place] [address] Care Team Providers Care Plastic Mould Maker Name Role Phone Unavailable Primary Care Provider Unavailabl e Encounter Details Date Type Department Care Team (Late st Contact Info) Description 03/24/2011 Results Only [facility] Laboratory Services - [facility] ([facility] [address] [place], [place] [phone] Adele Kaiser, [facility] [address] [place] [address] [place] [address] Social History Tobacco Use Types Packs/Day Years Used Date Smoking Tobacco: Never Assessed Sex and Gender Information Value Date Recorded Sex Assigned at Not on file Gender Identity Not on file Sexual Orientation Not on file documented as of this encounter Plan of Treatment Not on file documented as of this encounter Procedures Procedure Name Priority Date/Time Associated Diagnosis Comments PAP TEST- RESULT ONLY Routine 03/24/2011 0:00 EDT documented in this encounter Results * PAP TEST- RESULT ONLY (03/24/2011 0:00 EDT) Pathology Report: CYTOPATHOLOGY REPORT ? Reports generated via electronic interface contain original data; ? however they are lacking the format of the original report. ? Caution should be taken when reading/interpreti ng unformatted reports. ? Name: ? CALCAGNI, EBONI ? Accession #: ? [id number] ? : ? 1960 (Age: 50) ??F ?Collect Date: ? 03/24/2011 ? Location: ? [facility] ? Receive Date: ? 03/25/2011 ? Provider: ADELE MAGGIE CLAY MODELER ? Copy to: DAVID W BESCH SAFETY TECH ? Final Report ? SPECIMEN ADEQUACY ? Satisfactory for Evaluation ? - transformation zone component present ? GENERAL CATEGORIZATION ? Negative for Intraepithelial Lesion or Malignancy ? Hormonal/Contracep tive status: Depo-Provera ? Specimen/Source: ??Pap Test, Cervix/Endocervix, ThinPrep Imaging System with ? manual evaluation ? Document reviewed and electronically signed by: ? Kamilah Rakesh, CT(ASCP) ? Report ??Date: 03/29/2011 11:24 ? HPV with Pap Test ? Date Ordered: ? 03/29/2011 ? Status: ?? Signed Out ?Date Complete: ? 04/01/2011 ? By: ??System Interface ? Date Reported: ? 04/01/2011 ? Interpretation ? RESULT: Positive for one or more of HPV types 16,18,31,33,35,39, 45, ? 51,52,56,58,59, or 68. These high/intermediate risk HPV ? types are associated with dysplasia and some cervical ? cancers. ? Comments ? Document reviewed and electronically signed by: ? System Interface ? Report date: 04/01/2011 ? By the signature above, the attending physician certifies that he/she has ? personally conducted a gross and/or microscopic examination of the described ? specimens and rendered or confirmed the above diagnosis. ? End of Report ? [facility] 03/24/2011 03/25/2011 Adele Kaiser CLAY MODELER PATHOLOGY ORDERABLES Performing Organization Address City/State/[facility] Co de Phone Number [facility] [address] [place] [address] documented in this encounter Visit Diagnoses Not on filedocumented in this encounter
--- OUTSIDE RECORDS SUMMARY | 2024-05-22 12:15 | XMS_ITS | Encounter Summary ---
Author Organization [facility] Address [facility] [place] [address] Care Team Providers Care Architecture Consultant Name Role Phone Analy Crowe APRN Primary Care Provider [phone] Reason for Visit * Reason Comments Procedure Encounter Details Date Type Department Care Team (Late st Contact Info) Description 04/12/2022 2:45 PM EDT Procedure visit Dermatology at [address] [phone] Elier Lynn MD [address] [facility] [place] [address] Epidermal cyst Social History Tobacco Use Types Packs/Day Years Used Date Smoking Tobacco: Never Sex and Gender Information Value Date Recorded Sex Assigned at Not on file Gender Identity Not on file Sexual Orientation Not on file documented as of this encounter Progress Notes * Elier Lynn MD - 04/12/2022 2:45 PM EDT Clinical impression: Follicular cyst Site: Left upper eyelid Size: 3 mm Deep suture: None Surface suture 5-0 Ethilon Follow-up: In 5 to 7 days for suture removal and biopsy results Indications for surgery, possible adverse outcomes, and activity restrictions discussed. Informed verbal consent was obtained. Skin surface was prepared with 4% chlorhexidine and draped in the usual sterile manner. Local anesthesia was with 1% t lidocaine, 1 to 100,000 epinephrine and 0.1 mEq/mL bicarbonate. Using a 15 blade, and an elliptical excision was carried out over the top of the lesion. Undermining performed peripherally. Hemostasis with electrodesiccation. Layered closure performed, specimen to pathology. Wound dressed, care reviewed. Follow-up in 5 to 7 days for suture removal and biopsy results. CC: Analy Crowe APRN documented in this encounter Plan of Treatment Not on file documented as of this encounter Visit Diagnoses Diagnosis Epidermal cyst Sebaceous cyst documented in this encounter Care Teams Architecture Consultant Relationship Specialty Start Date End Date Analy Crowe APRN [address] [place] [address] PCP - General Family Medicine 03/17/22 documented as of this encounter
--- OUTSIDE RECORDS SUMMARY | 2024-05-22 12:15 | XMS_ITS | Encounter Summary ---
Author Organization [facility] Address [address] [place] [address] Care Team Providers Care Test Hole Driller Name Role Phone Unavailable Primary Care Provider Unavailabl e Encounter Details Date Type Department Care Team (Late st Contact Info) Description 10/01/2012 Results Only [facility] Laboratory Services - [facility] ([facility] [address] [place], [place] [phone] Adele Kaiser, [facility] [address] [place] [address] [place] [address] Social History Tobacco Use Types [...] Diagnosis Comments PAP TEST- RESULT ONLY Routine 10/01/2012 0:00 EDT documented in this encounter Results * PAP TEST- RESULT ONLY (10/01/2012 0:00 EDT) Pathology Report: CYTOPATHOLOGY REPORT Reports generated via electronic interface contain original data; however they are lacking the format of the original report. Caution should be taken when reading/interpreti ng unformatted reports. Name: ? EBONI GARCIA ? Accession #: ? [id number] ? : ? 1960 (Age: 51) ??F ?Collect Date: ? 10/01/2012 ? Location: ? [facility] ? Receive Date: ? 10/02/2012 ? Provider: ADELE [facility] COMMERCIAL SERVICE TECHNICIAN Copy to: DAVID GOLD BALLET SOLOIST ? Final Report SPECIMEN ADEQUACY ? Satisfactory for Evaluation - transformation zone component present GENERAL CATEGORIZATION ? Negative for Intraepithelial Lesion or Malignancy ?? Last Menstrual Period: 08/30/2012 Previous Gynecologic Pathology: HPV: + screening HPV 03/2011 Other: Additional clinical information: NORMAL PAP , Specimen/Source: ??Pap Test, Cervix/Endocervix, ThinPrep Imaging System with manual evaluation Document reviewed and electronically signed by: ? Kamilah Cameron, CT(ASCP) ? Report ??Date: 10/04/2012 09:01 HPV with Pap Test ? Date Ordered: ? 10/04/2012 ? Status: ?? Signed Out ?Date Complete: ? 10/05/2012 ? By: ??System Interface ? Date Reported: ? 10/05/2012 ? Interpretation RESULT: Negative for HPV. No E6 or E7 mRNA is detected from HPV types 16,18,31,33,35, 39,45,51,52,56,58, 59,66, and 68 by supervisor cigarette making department mediated amplification. Comments Document reviewed and electronically signed by: ? System Interface ? Report date: 10/05/2012 By the signature above, the attending physician certifies that he/she has personally conducted a gross and/or microscopic examination of the described specimens and rendered or confirmed the above diagnosis. End of Report [facility] 10/01/2012 10/02/2012 Adele Kaiser COMMERCIAL SERVICE TECHNICIAN PATHOLOGY ORDERABLES Performing Organization Address City/State/[facility] Co de Phone Number [facility] [address] [address] documented in this encounter Visit Diagnoses Not on filedocumented in this encounter
--- OUTSIDE RECORDS SUMMARY | 2024-05-22 12:15 | XMS_ITS | Encounter Summary ---
Author Organization [facility] Address [address] [place] [address] Care Team Providers Care Mat Making Machine Tender Name Role Phone Unavailable Primary Care Provider Unavailabl e Encounter Details Date Type Department Care Team (Late st Contact Info) Description 04/15/2002 Results Only [facility] conversion [address] [place] [address] Mio Mccain MD [address] [place], [place] [phone] Social History Tobacco Use Types Packs/Day Years Used Date Smoking Tobacco: Never Assessed Sex and Gender Information Value Date Recorded Sex Assigned at Not on file Gender Identity Not on file Sexual Orientation Not on file documented as of this encounter Plan of Treatment Not on file documented as of this encounter Procedures Procedure Name Priority Date/Time Associated Diagnosis Comments CYTOPATHOLOGY Routine 04/15/2002 0:00 EDT documented in this encounter Results * CYTOPATHOLOGY (04/15/2002 0:00 EDT) Pathology Report: CYTOPATHOLOGY REPORT Reports generated via electronic interface contain original data; however they are lacking the format of the original report. Caution should be taken when reading/interpreti ng unformatted reports. Name: ? EBONI GARCIA ? Accession #: ? [id number] : ? 1960 (Age: 41) ??F ?Collect Date: ? 04/15/2002 Location: ? [facility] ? Receive Date: ? 04/17/2002 Provider: ?MIO MCCAIN MD Copy to: ? Specimen/Source: ?ThinPrep Pap Test, Cervix/Endocervix Last Menstrual Period: ? 01/03/02 Menstrual/Pregnanc y Status: ? SPECIMEN ADEQUACY ? Satisfactory for Evaluation - transformation zone component present GENERAL CATEGORIZATION ? Negative for Intraepithelial Lesion or Malignancy ? Document reviewed and electronically signed by: ? DIANA Montana(ASCP) ? Report Date: ??04/23/2002 07:25 End of Report [facility] 04/15/2002 04/17/2002 Mio Mccain MD PATHOLOGY ORDERABLES [facility] [address] [place] [address] documented in this encounter Visit Diagnoses Not on filedocumented in this encounter
--- OUTSIDE RECORDS SUMMARY | 2024-05-22 12:15 | XMS_ITS | Encounter Summary ---
Author Organization [facility] Address [address] [place] [address] Care Team Providers Care News Director Name Role Phone Unknown, Provider Primary Care Provider Unava ilable Reason for Visit * Reason Onset Date Comments Provider Referred 09/23/2015 Encounter Details Date Type Department Care Team (Late st Contact Info) Description 09/23/2015 Telephone [facility] Dermatology 3rd Floor [address] [phone] Myriam Camacho MD [address] [place] [address], [facility] [address] [place] [address] Provider Referred Social History Tobacco Use Types Packs/Day Years Used Date Smoking Tobacco: Never Assessed Sex and Gender Information Value Date Recorded Sex Assigned at Not on file Gender Identity Not on file Sexual Orientation Not on file documented as of this encounter Miscellaneous Notes * Telephone Encounter - Brandon Cunningham - 09/29/2015 0857 EDT Updated numbers listed for patient. Patient states work number is [phone] NOT [phone]. Patient states that the person who answered her home phone was probably her 12 year old son. Patient apologizes for the mailbox being full on mobile, she didn't realize. Offered patient multiple appointments and patient accept appointment for 10/14/2015 at 10:45am with for a lesion on her nose that has been present 2 months. Brandon Cunningham 8:58 09/29/2015 Nurse Licensed Practical, Dermatology * Telephone Encounter - Maylin Chatman RN - 09/23/2015 1143 EST Unable to reach patient at numbers listed [phone] Person who answered phone unable to take message - no answering machine [phone] Continuously busy [phone] Mailbox is full and can not accept messages Mailed letter to patient. Asked to call our office by Friday October 02, 2015 to schedule an appointment. MAYLIN CHATMAN RN 09/23/2015 11:46 * Telephone Encounter - Katherine Katz - 09/23/2015 1106 EST Jackie Solano NP of the [facility] is referring the patient for a lesion on the bridge of her nose. Per the note, likely BCC. Notes received. documented in this encounter Plan of Treatment Not on file documented as of this encounter Visit Diagnoses Not on filedocumented in this encounter Care Teams News Director Relationship Specialty Start Date End Date Unknown, Provider, PCP - General 06/07/15 documented as of this encounter
--- OUTSIDE RECORDS SUMMARY | 2024-05-22 12:15 | XMS_ITS | Encounter Summary ---
Author Organization [facility] Address [address] [place] [address] Care Team Providers Care Core Finisher Name Role Phone Unknown, Provider Primary Care Provider Unava ilable Encounter Details Date Type Department Care Team (Latest Contact Info) Description 08/27/2021 Lab Requisition [facility] Pathology & Laboratory Medicine - [address] [address] Analy Crowe FNP [address] [place], [place] [phone] Encounter for general adult medical examination without abnormal findings; Encounter for screening for malignant neoplasm of cervix; Encounter for screening for human papillomavirus (HPV) Social History Tobacco Use Types Packs/Day Years Used Date Smoking Tobacco: Never Assessed Sex and Gender Information Value Date Recorded Sex Assigned at Not on file Gender Identity Not on file Sexual Orientation Not on file documented as of this encounter Plan of Treatment Not on file documented as of this encounter Procedures Procedure Name Priority Date/Time Associated Diagnosis Comments PAP TEST Today 08/26/2021 4:00 EST Encounter for general adult medical examination without abnormal findings Encounter for screening for malignant neoplasm of cervix Encounter for screening for human papillomavirus (HPV) HPV DNA DETECTION WITH GENOTYPING, PCR Today 08/26/2021 4:00 EST Encounter for general adult medical examination without abnormal findings Encounter for screening for malignant neoplasm of cervix Encounter for screening for human papillomavirus (HPV) documented in this encounter Results * HUMAN PAPILLOMAVIRUS (HPV) DETECTION-HIGH RISK TYPES (08/26/2021 4:00 EST) HPV other High Risk types, PCR Negative Negative 09/09/2021 9:01 [facility] Comment:No E6 or E7 mRNA is detected from HPV types 16,18,31,33,35,39,45,51,52,56,58,59,66, and 68 by physical plant manager mediated amplification. Papanicolaou smear specimen (specimen) CERVIX UTERI STRUCTURE / Unknown 08/26/2021 4:00 EST 09/08/2021 7:42 EST Analy Crowe DRAPERY HANGER MICROBIOLOGY - GENER AL ORDERABLES [facility] [address] [place] [address] * PAP TEST (08/26/2021 4:00 EST) Specimens A. Cervix and/or Endocervix , ThinPrep Imaging System with Manual Evaluation 09/09/2021 9:01 [facility] Specimen Adequacy Satisfactory for Evaluation - transformation zone component present 09/09/2021 9:01 [facility] General Categorization Negative for intraepithelial lesion or malignancy 09/09/2021 9:01 [facility] Attestation . 09/09/2021 9:01 [facility] at 0901 Clinical History SEE BELOW 09/09/19 9:01 [facility] HPV The result for the Human Papillomavirus (HPV) Detection-High Risk Types is Negative. No E6 or E7 mRNA is detected from HPV types 16,18,31,33,35,39 ,45,51,52,56,58,5 9,66, and 68 by physical plant manager mediated amplification.Marisa ting was performed on specimen [id number] and was resulted on 09/09/2021 0733 EST by YOVANA, LAB INSTRUMENT RESULTS IN 09/09/2021 9:01 [facility] Performing Lab [facility] 09/09/2021 9:01 [facility] Scanned Images 09/09/2021 9:01 [facility] Papanicolaou smear specimen (specimen) CERVIX UTERI STRUCTURE / Unknown 08/26/2021 4:00 EST 08/27/2021 14:14 EST Analy Crowe DRAPERY HANGER PATHOLOGY ORDERABLES [facility] [address] [place] [phone] documented in this encounter Visit Diagnoses Diagnosis Encounter for general adult medical examination without abnormal findings Unspecified general medical examination Encounter for screening for malignant neoplasm of cervix Screening for malignant neoplasm of the cervix Encounter for screening for human papillomavirus (HPV) Special screening examination for human papillomavirus (HPV) documented in this encounter Care Teams Core Finisher Relationship Specialty Start Date End Date Unknown, Provider, PCP - General 06/07/15 documented as of this encounter
--- OUTSIDE RECORDS SUMMARY | 2024-05-22 12:15 | XMS_ITS | Encounter Summary ---
Author Organization [facility] [place] [address] Care Team Providers Care Tourist Agent Name Role Phone Analy Crowe APRN Primary Care Provider [phone] Reason for Visit * Reason Comments Skin Lesion * Consultation (Routine) - Closed Specialty Diagnoses / Procedures Referred By Cristina licona Referred To Contact Dermatology Diagnoses Disorder of the skin and subcutaneous tissue, unspecified Skin Lesion on face Procedures consult Analy Crowe APRN [address] [place] [address] [place] [address] Elier Lynn MD [address] [place] [address], [facility] [place] [address] Referral ID Status Reason Start Date Expiration Date Visits Re quested Visits Authorized [id number] Closed 01/10/2022 01/10/2023 1 1 Encounter Details Date Type Department Care Team (Late st Contact Info) Description 03/17/2022 4:15 PM EDT Office Visit Dermatology at [address] [phone] Elier Lynn MD [address] [place] [address], [facility] A DERMATOLOGY [place], [place] [id number] Epidermal cyst Social History Tobacco Use Types Packs/Day Years Used Date Smoking Tobacco: Never Sex and Gender Information Value Date Recorded Sex Assigned at Not on file Gender Identity Not on file Sexual Orientation Not on file documented as of this encounter Progress Notes * Elier Lynn MD - 03/17/2022 4:15 PM EDT Problem: Left upper eyelid lesion Anel follows up and is concerned about a lesion has developed over recent months on the left uppereyelid. Physical examination suggests a follicular cyst perhaps 3 mm in diameter on the left upper eyelid. Assessment plan: Follicular cyst 1. Patient reassured about benign appearance of this. 2. Patient requests removal. We will schedule a 30-minute appointment for excision at her convenience. 3. Discussed postoperative wound care. CC: Analy Crowe APRN documented in this encounter Plan of Treatment Not on file documented as of this encounter Visit Diagnoses Diagnosis Epidermal cyst Sebaceous cyst documented in this encounter Care Teams Tourist Agent Relationship Specialty Start Date End Date Analy Crowe APRN [address] [facility] [address] PCP - General Family Medicine 03/17/22 documented as of this encounter
--- OUTSIDE RECORDS SUMMARY | 2024-05-22 12:15 | XMS_ITS | Encounter Summary ---
Author Organization [facility] Address [facility] [place] [address] Care Team Providers Care Student Success Counselor Name Role Phone Analy Crowe APRN Primary Care Provider [phone] Encounter Details Date Type Department Care Team (Late st Contact Info) Description 09/29/2008 Orders Only Obstetrics [place] [address] Juice Mcbride MD [facility] [address] OBSTET[place] [address] Social History Tobacco Use Types Packs/Day Years Used Date Smoking Tobacco: Never Assessed Sex and Gender Information Value Date Recorded Sex Assigned at Not on file Gender Identity Not on file Sexual Orientation Not on file documented as of this encounter Plan of Treatment Not on file documented as of this encounter Procedures Procedure Name Priority Date/Time Associated Diagnosis Comments HEMOGLOBIN ELECTROPHORESIS REPORT Routine 09/29/2008 12:00 PM EDT documented in this encounter Results * Hemoglobin Electrophoresis Report (09/29/2008 12:00 PM EDT) Hemoglobin Electrophoresis Report [id number] ? Location: 5L The signing pathologist has (i) examined the relevant preparation(s) for the specimen(s) and (ii) rendered or confirmed the diagnosis(es). . ? Pathology Hemoglobin Electrophoresis Report Clinical Information anemia Result CBC Results: ?? Hemoglobin: ?10.7 g/dL ?? Hematocrit: ?32.4 % ?? RBC Count: ? 4 x 10^6/ul ?? RDW: ? 14 % ?? MCV: ? 79 fL ?? MCH: ? 26.2 pg ?? MCHC: ?33 g/dL Peripheral Blood Morphology: There is ?? normochromic, borderline ??microcytic anemia with slight anisopoikilocytosi s. Hemoglobin A2 Quantification: 2.6 % (Normal < 3.1%) Hemoglobin Electrophoresis Study: No abnormal hemoglobin variants are detected by screening electrophoresis at pH = 8.4. PK /PK Interpretation No evidence of hemoglobinopathy . see comment. 10/14/08 PK 10/14/08 Verified by: ? Lenny Guy MD ?Hematopathologis t ?(Electronic Signature) The attending pathologist whose signature appears on this report has reviewed all diagnostic slides and has edited the gross and/or microscopic portion of the report in rendering the final pathologic diagnosis. Comment ?? The common high HbA2 beta-thalassemia trait cannot be ruled out on the basis a normal HbA2 IF THERE IS COEXISTENT IRON DEFICIENCY, which can suppress HbA2 levels into the normal range. ??Suggest iron studies, and iron therapy as appropriate, and repeat HbA2 test if MCV remains low. ?? Microcytosis with normal HbA2 and normal iron studies may be due to alpha- thalassemia-1 (alpha-thalassemia trait, 2 of 4 alpha-globin genes affected) or rare types of beta-thalassemia trait (normal A2 beta-thalassemia). ??Alpha-thalassemi a-2 (silent carrier, 1 of 4 alpha-globin genes affected) has a normal MCV and is asymptomatic. ??If ethnic background is appropriate and confirmation of a diagnosis warranted, suggest follow up send out testing to [facility] for Thalassemia and Hemoglobinopathy Evaluation. [facility] 09/29/2008 12:0 0 PM EDT E Rola Mcbride MD PATHOLOGY/CYTOLOG Y ORDERABLES [facility] documented in this encounter Visit Diagnoses Not on filedocumented in this encounter Care Teams Student Success Counselor Relationship Specialty Start Date End Date Analy Crowe, HU [address] [place] [address] PCP - General Family Medicine 03/17/22 documented as of this encounter
--- OUTSIDE RECORDS SUMMARY | 2024-05-22 12:15 | XMS_ITS | Encounter Summary ---
Author Organization [facility] Address [address] [place] [address] Care Team Providers Care Repairer Auto Clocks Name Role Phone Unavailable Primary Care Provider Unavailabl e Encounter Details Date Type Department Care Team (Late st Contact Info) Description 08/07/2003 Results Only [facility] conversion [address] [place] [address] Danuta Summers NP Social History Tobacco Use Types Packs/Day Years Used Date Smoking Tobacco: Never Assessed Sex and Gender Information Value Date Recorded Sex Assigned at Not on file Gender Identity Not on file Sexual Orientation Not on file documented as of this encounter Plan of Treatment Not on file documented as of this encounter Procedures Procedure Name Priority Date/Time Associated Diagnosis Comments CYTOPATHOLOGY Routine 08/07/2003 0:00 EST documented in this encounter Results * CYTOPATHOLOGY (08/07/2003 0:00 EST) Pathology Report: CYTOPATHOLOGY REPORT Reports generated via electronic interface contain original data; however they are lacking the format of the original report. Caution should be taken when reading/interpreti ng unformatted reports. Name: ? EBONI GARCIA ? Accession #: ? [id number] : ? 1960 (Age: 42) ??F ?Collect Date: ? 08/07/2003 Location: ? [facility] ? Receive Date: ? 08/08/2003 Provider: ?DANUTA SUMMERS MAJOR LEAGUE BASEBALL PLAYER Copy to: ? Specimen/Source: ?ThinPrep Pap Test, Cervix/Endocervix Last Menstrual Period: ? Hormonal/Contracep tive Status: ? Depo-Provera ? SPECIMEN ADEQUACY ? Satisfactory for Evaluation - transformation zone component present GENERAL CATEGORIZATION ? Negative for Intraepithelial Lesion or Malignancy ? Document reviewed and electronically signed by: ? DIANA Small(ASCP) ? Report Date: ??08/13/2003 14:30 End of Report [facility] 08/07/2003 08/08/2003 Danuta Summers NP PATHOLOGY ORDERABLES [facility] [address] [place] [address] documented in this encounter Visit Diagnoses Not on filedocumented in this encounter
--- OUTSIDE RECORDS SUMMARY | 2024-05-22 12:15 | XMS_ITS | Encounter Summary ---
Author Organization [facility] Address [address] [place] [address] Care Team Providers Care Physician Relations Specialist Name Role Phone Unknown, Provider Primary Care Provider Unava ilable Encounter Details Date Type Department Care Team (Latest Contact Info) Description 08/07/2020 Lab Requisition [facility] Pathology & Laboratory Medicine - [facility] [address] [place] [address] Analy Crowe FNP [address] [place], [place] [id number] Encounter for general adult medical examination without [...] Date/Time Associated Diagnosis Comments PAP TEST Today 08/07/2020 9:30 EST Encounter for general adult medical examination without abnormal findings Encounter for screening for malignant neoplasm of cervix Encounter for screening for human papillomavirus (HPV) HPV GENOTYPES 16 AND 18/45 Today 08/07/2020 9:30 EST Encounter for general adult medical examination without abnormal findings Encounter for screening for malignant neoplasm of cervix Encounter for screening for human papillomavirus (HPV) CHLAMYDIA/N. GONORRHOEAE AMPLIFIED NUCLEIC ACID, THINPREP Today 08/07/2020 9:30 EST HPV DNA DETECTION WITH GENOTYPING, PCR Today 08/07/2020 9:30 EST Encounter for general adult medical examination without abnormal findings Encounter for screening for malignant neoplasm of cervix Encounter for screening for human papillomavirus (HPV) documented in this encounter Results * HPV GENOTYPES 16 AND 18/45 (08/07/2020 9:30 EST) HPV High Risk type 16, PCR Negative Negative 08/20/2020 15:17 EST [facility] HPV18/45 RNA (HPV18/45) Negative Negative 08/20/2020 15:17 EST [facility] Papanicolaou smear specimen (specimen) CERVIX UTERI STRUCTURE / Unknown 08/07/2020 9:30 EST 08/17/2020 15:25 EST Analy CARRILLO MICROBIOLOGY - GENER AL ORDERABLES Performing Organization Address [facility] Co de Phone Number [facility] [address] [place] [address] * (ABNORMAL) HUMAN PAPILLOMAVIRUS (HPV) DETECTION-HIGH RISK TYPES (08/07/2020 9:30 EST) HPV other High Risk types, PCR Positive( A) Negative 08/20/2020 15:17 EST [facility] Comment:E6 OR E7 mRNA from o ne or more types of HPV types 16,18,31,33,35,39,45,51,52,56,58,59,66, and 68 is detected by rn rehab mediated amplification. High and intermediate risk HPV types are associated with most squamous intraepithelial lesions and cervical cancers. Papanicolaou smear specimen (specimen) CERVIX UTERI STRUCTURE / Unknown 08/07/2020 9:30 EST 08/17/2020 15:25 EST Analy CARRILLO MICROBIOLOGY - GENER AL ORDERABLES Performing Organization Address [facility] Co de Phone Number [facility] [address] [place] [address] * PAP TEST (08/07/2020 9:30 EST) Specimens A. Cervix and/or Endocervix , ThinPrep Imaging System with Manual Evaluation 08/20/2020 15:17 [facility] Specimen Adequacy Satisfactory for Evaluation - transformation zone component present 08/20/2020 15:17 [facility] General Categorization Negative for intraepithelial lesion or malignancy 08/20/2020 15:17 [facility] Attestation . 08/20/2020 15:17 [facility] at 1517 Clinical History See below 08/20/19 15:17 [facility] HPV The result for the Human Papillomavirus (HPV) Detection-High Risk Types is Positive . E6 OR E7 mRNA from one or more types of HPV types 16,18,31,33,35,39 ,45,51,52,56,58,5 9,66, and 68 is detected by rn rehab mediated amplification. High and intermediate risk HPV types are associated with most squamous intraepithelial lesions and cervical cancers. Testing was performed on specimen [id number] and was resulted on 08/19/2020 1508 EST by YOVANA, LAB INSTRUMENT RESULTS IN 08/20/2020 15:17 [facility] Genotyping 16 & 18/45 The results for the HPV Genotypes 16 and 18/45 are Negative for the HPV16 RNA and Negative for the HPV18/45 RNA (HPV18/45). Testing was performed on specimen [id number] and was resulted on 08/20/2020 1435 EST by YOVANA, LAB INSTRUMENT RESULTS IN 08/20/2020 15:17 [facility] Performing Lab [facility] 08/20/2020 15:17 [facility] Scanned Images 08/20/2020 15:17 [facility] Papanicolaou smear specimen (specimen) CERVIX UTERI STRUCTURE / Unknown 08/07/2020 9:30 EST 08/10/2020 11:59 EST Analy CARRILLO PATHOLOGY ORDERABLES [facility] [address] [place] [address] * CHLAMYDIA/N. GONORRHOEAE AMPLIFIED RNA, THINPREP (08/07/2020 9:30 EST) Neisseria gonorrhoeae Result Negative Negative 08/10/2020 14:20 EST [facility] Chlamydia trachomatis Result Negative Negative 08/10/2020 14:20 EST [facility] Papanicolaou smear specimen (specimen) CERVIX UTERI STRUCTURE / Unknown 08/07/2020 9:30 EST 08/10/2020 7:36 EST Analy Crowe TRAFFIC COORDINATOR MICROBIOLOGY - GENER AL ORDERABLES [facility] [address] [place] [address] documented in this encounter Visit Diagnoses Diagnosis Encounter for general adult medical examination without abnormal findings Unspecified general medical examination Encounter for screening for malignant neoplasm of cervix Screening for malignant neoplasm of the cervix Encounter for screening for human papillomavirus (HPV) Special screening examination for human papillomavirus (HPV) documented in this encounter Care Teams Physician Relations Specialist Relationship Specialty Start Date End Date Unknown, Provider, PCP - General 06/07/15 documented as of this encounter
--- OUTSIDE RECORDS SUMMARY | 2024-05-22 12:15 | XMS_ITS | Encounter Summary ---
Author Organization [facility] [place] [address] Care Team Providers Care Nurse Monitoring Name Role Phone Analy Crowe APRN Primary Care Provider [phone] Reason for Visit * Reason Comments Suture / Staple Removal Encounter Details Date Type Department Care Team (Late st Contact Info) Description 04/19/2022 4:45 PM EDT Office Visit Dermatology at [address] [phone] Elier Lynn MD [address] [facility] [place] [address] Visit for suture removal Social History Tobacco Use Types Packs/Day Years Used Date Smoking Tobacco: Never Smokeless Tobacco: Never Sex and Gender Information Value Date Recorded Sex Assigned at Not on file Gender Identity Not on file Sexual Orientation Not on file documented as of this encounter Progress Notes * Elier Lynn MD - 04/19/2022 4:45 PM EDT Problem: Follow-up for suture removal and biopsy results Anel follows up and the biopsy came back showing not a cyst but in fact a small nevus. Physical examination was good healing the biopsy site Assessment plan: Status post excision irritated nevus left upper eyelid 1. Suture removed 2. November DC wound instructions 3. Return to clinic as needed CC: Analy Crowe APRN documented in this encounter Plan of Treatment Not on file documented as of this encounter Visit Diagnoses Diagnosis Visit for suture removal Encounter for removal of sutures documented in this encounter Care Teams Nurse Monitoring Relationship Specialty Start Date End Date Analy Crowe, HU [address] [place] [address] PCP - General Family Medicine 03/17/22 documented as of this encounter
--- OUTSIDE RECORDS SUMMARY | 2024-05-22 12:15 | XMS_ITS | Clinical Summary ---
[place] [address] Care Team Providers Care Service Superintendent Name Role Phone Analy Crowe APRN Primary Care Provider [phone] Allergies No known active allergies Medications No known medications Active Problems Problem Noted Date Diagnosed Date Actinic keratosis 03/07/2016 Social History Tobacco Use Types Packs/Day Years Used Date Smoking Tobacco: Never Smokeless Tobacco: Never Sex and Gender Information Value Date Recorded Sex Assigned at Not on file Gender Identity Not on file Sexual Orientation Not on file Plan of Treatment Health Maintenance Due Date Last Done Comments CT Colonography 1960 Colonoscopy 1960 Colorectal Cancer Screening 1960 FIT DNA 1960 FIT 1960 Sigmoidoscopy (10 year) with FIT yearly 1960 Sigmoidoscopy 1960 HIV screen 1980 Hepatitis C Screening 1980 Tetanus/Diphtheria/Pertussis Vaccines (1 - Tdap) 10/11 HPV test 1992 PAP Smear 1992 Breast Cancer Share Decision Needed 2002 Breast Cancer screening 2002 Zoster vaccine (1 of 2) 2012 Advance Directive 2017 Covid-19 Vaccine ( season) 2024 Influenza (Flu) vaccine (1 o f 1 - Influenza standard series) 03/17/2024 Care Teams Service Superintendent Relationship Specialty Start Date End Date Analy Crowe, HU [address] [place] [address] PCP - General Family Medicine 03/17/22
--- OUTSIDE RECORDS SUMMARY | 2024-05-22 12:15 | XMS_ITS | Encounter Summary ---
Author Organization [facility] Address [address] [place] [address] Care Team Providers Care Tissue Specialist Name Role Phone Unknown, Provider Primary Care Provider Unava ilable Encounter Details Date Type Department Care Team (Late st Contact Info) Description 12/10/2015 Results Only [facility] [phone] Adele Kaiser, [address] [place] [address] Social History Tobacco Use Types [...] Diagnosis Comments PAP TEST- RESULT ONLY Routine 12/10/2015 0:00 EDT documented in this encounter Results * PAP TEST- RESULT ONLY (12/10/2015 0:00 EDT) Pathology Report: CYTOPATHOLOGY REPORT Reports generated via electronic interface contain original data; however they are lacking the format of the original report. Caution should be taken when reading/interpreti ng unformatted reports. Name: ? EBONI GARCIA ? Accession #: ? [id number] ? : ? 1960 (Age: 55) ??F ?Collect Date: ? 12/10/2015 ? Location: ? [facility] ? Receive Date: ? 12/11/2015 ? Provider: ADELE KAISER RUBBER TUBING SPLICER Copy to: DAVID GOLD RIGHT OF WAY BUYER ? Final Report SPECIMEN ADEQUACY ? Satisfactory for Evaluation - transformation zone component present - scant squamous epithelial component - obscuring contamination, possibly lubricant GENERAL CATEGORIZATION ? Negative for Intraepithelial Lesion or Malignancy ?? Last Menstrual Period: 11/26/2015 Specimen/Source: ??Pap Test, Cervix/Endocervix, ThinPrep Imaging System with manual evaluation Document reviewed and electronically signed by: ? Venice Nevarez [facility](ASCP) ? Report ??Date: 12/22/2015 12:43 HPV with Pap Test ? Date Ordered: ? 12/22/2015 ? Status: ?? Signed Out ?Date Complete: ? 12/24/2015 ? By: ??System Interface ? Date Reported: ? 12/24/2015 ? Interpretation RESULT: Negative for HPV. No E6 or E7 mRNA is detected from HPV types 16,18,31,33,35, 39,45,51,52,56,58, 59,66, and 68 by education professor mediated amplification. Comments Document reviewed and electronically signed by: ? System Interface ? Report date: 12/24/2015 By the signature above, the attending physician certifies that he/she has personally conducted a gross and/or microscopic examination of the described specimens and rendered or confirmed the above diagnosis. End of Report [facility] 12/10/2015 12/11/2015 Adele Kaiser RUBBER TUBING SPLICER PATHOLOGY ORDERABLES [facility] [address] [place] [address] documented in this encounter Visit Diagnoses Not on filedocumented in this encounter Care Teams Tissue Specialist Relationship Specialty Start Date End Date Unknown, Provider, PCP - General 06/07/15 documented as of this encounter
--- OUTSIDE RECORDS SUMMARY | 2024-05-22 12:15 | XMS_ITS | Encounter Summary ---
[place] [address] Care Team Providers Care Olericulturist Name Role Phone Jackie Solano APRN Primary Care Provider [phone] Reason for Visit * Reason Comments Skin Check New patient * Consultation (Routine) - Closed Specialty Diagnoses / Procedures Referred By Cristina licona Referred To Contact Dermatology Diagnoses skin lesion on bridge of her nose Jackie Solano APRN [address] [place] [address] [address] Elier Lynn MD [address] [place] [address], [facility] [place] [address] Referral ID Status Reason Start Date Expiration Date V isits Requested Visits Authorized [id number] Closed Consult, Test & Treat Connection [facility] PCP Updated and/or Approved 11/04/2015 11/03/2016 1 1 Encounter Details Date Type Department Care Team (Late st Contact Info) Description 03/07/2016 3:15 PM EDT Office Visit Dermatology at [address] [address] Elier Lynn MD [address] [place] [address], [facility] [place], [place] [id number] Actinic keratosis Social History Tobacco Use Types Packs/Day Years Used Date Smoking Tobacco: Never Sex and Gender Information Value Date Recorded Sex Assigned at Not on file Gender Identity Not on file Sexual Orientation Not on file documented as of this encounter Progress Notes * Elier Lynn MD - 03/07/2016 3:15 PM EDT PROBLEM: Nasal bridge lesion. Anel is a 55-year-old woman who was referred today by Jackie Solano for evaluation of a new lesion on the mid nasal bridge. She noticed it developing there over the last 8 months or so. It was noted during a physical examination in September with Jackie Solano, and noted a flat, erythematous patch. The patient states that she grew up in [place]. Physical examination today reveals a pleasant, fair-skinned 55-year-old woman who has an area of slight hyperpigmentation and slight depression over the nasal bridge just left of the center on the upper bridge of the nose, consistent with a pigmented actinic keratosis with some slight atrophy. There is no hyperkeratosis. The remainder of the skin examination of the face, the hair-bearing scalp, the neck, the chest, the back, abdomen, forearms, thighs, and the calves is otherwise benign. Soles of the feet are likewise unremarkable. ASSESSMENT/PLAN: Actinic keratosis, nasal bridge. A. LN2 x2 applied to the site. LN2 x1 applied sparingly to the affected site. B. Patient tolerated it well. C. Discussed post LN2 instructions. D. Return to clinic here p.r.n. I will be happy to see the patient back here at either the request of the patient herself or that of Jackie Solano. E. Reinforced sun avoidance precautions, which the patient is following. She tries to wear a hat and uses [id number] sunscreen. Cc: Jackie Solano NP documented in this encounter Plan of Treatment Not on file documented as of this encounter Visit Diagnoses Diagnosis Actinic keratosis documented in this encounter Care Teams Olericulturist Relationship Specialty Start Date End Date Jackie Solano APRN PCP - General Family Medicine 11/04/15 02/13/19 documented as of this encounter
--- OUTSIDE RECORDS SUMMARY | 2024-05-22 12:15 | XMS_ITS | Encounter Summary ---
Author Organization [facility] Address [address] [place] [address] Care Team Providers Care Word Processor Operator Name Role Phone Unavailable Primary Care Provider Unavailabl e Encounter Details Date Type Department Care Team (Late st Contact Info) Description 09/28/2004 Results Only [facility] [place] conversion [address] [place] [address] Adele Kaiser, [facility] [address] [place] [address] [place] [address] Social History Tobacco Use Types [...] Priority Date/Time Associated Diagnosis Comments CYTOPATHOLOGY Routine 09/28/2004 0:00 EST documented in this encounter Results * CYTOPATHOLOGY (09/28/2004 0:00 EST) Pathology Report: CYTOPATHOLOGY REPORT Reports generated via electronic interface contain original data; however they are lacking the format of the original report. Caution should be taken when reading/interpreti ng unformatted reports. Name: ? EBONI GARCIA ? Accession #: ? [id number] : ? 1960 (Age: 43) ??F ?Collect Date: ? 09/28/2004 Location: ? [facility] ? Receive Date: ? 09/30/2004 Provider: ?ADELE KAISER HOUSE CLEANER Copy to: ? Specimen/Source: ?ThinPrep Pap Test, Cervix/Endocervix Last Menstrual Period: ? Hormonal/Contracep tive Status: ? Depo-Provera Other: ? HPVA - HPV testing requested if ASC-US on the current ThinPrep Pap test. ? SPECIMEN ADEQUACY ? Satisfactory for Evaluation - transformation zone component present GENERAL CATEGORIZATION ? Negative for Intraepithelial Lesion or Malignancy ? Document reviewed and electronically signed by: ? DIANA Small(ASCP) ? Report Date: ??10/04/2004 12:28 End of Report TRUPTI BARRERA 09/28/2004 09/30/2004 Adele Kaiser HOUSE CLEANER PATHOLOGY ORDERABLES [facility] [address] [place] [address] documented in this encounter Visit Diagnoses Not on filedocumented in this encounter
== END 2024-05-22 12:13 | disposition home or self-care (01) ==
LOC: LBN 12:12
PROVIDERS: PCP Nurse Practitioner Family; Visit Provider Physician Assistant Medical
DX: J02.9 Acute pharyngitis, unspecified (principal)
CPT/HCPCS: 87081

== ENCOUNTER 2024-07-26 00:24 | Outpatient (CLI) | payer MEDICAID, SELFPAY ==
--- NOTE | 2024-07-26 | DI.US_ITS ---
Exam(s) MG MAMMO DIAGNOSTIC UNI US BREAST RT LIMITED EXAM: MG MAMMO DIAGNOSTIC UNI and U/S breast RT limited CLINICAL HISTORY: R92.8 Abnormal inconclusive findings on DI of breast, 3 Month f/u,rt nodule. TECHNIQUE: Craniocaudal and mediolateral oblique Full Field Digital Mammography views of the right b reast with Computer Aided Diagnosis followed by Tomosynthesis and right breast ultrasound. COMPARISON: Comparison is made with prior examinations. FINDINGS: Mammography/Tomosynthesis: Masses/Architectural Distortion: There is again seen an intact right breast implant. The nodule in t he upper outer quadrant of the right breast shows slight interval decrease in size compared to the pr ior examination. Previously, the nodule measured 1.1 cm mammographically. Currently, it measures 9. 3 mm. No areas of architectural distortion are seen. Microcalcifictions: No suspicious pleomorphic-type are seen. Skin Thickening/Nipple Retraction: None. Limited right breast US: Echotexture: Normal appearance of the glandular tissue. Shadowing: No suspicious foci. Cyst: There is again seen a hypoechoic round lesion at the 12 o'clock position 1 cm from the nipple m easuring 0.3 cm. This is unchanged. The hypoechoic lobulated nodule at the 11 o'clock position 4 cm from the nipple measures 0.8 x 0.5 x 0.9 cm. This has shown slight decrease in size. Solid lesions: None seen. Ductal dilation: None. IMPRESSION: 1. No definite evidence of malignancy is noted. 2. The patient should return for a 3 month follow-up mammogram and ultrasound for re-evaluation. 3. The findings were discussed with the patient on the date of the examination. BI-RADS Category 3 - Probably Benign Finding: Recommend follow-up imaging in 3 months Breast Density - Category B - Scattered areas of fibroglandular density Breast density Category C or D implies that the patient has dense breast tissue. Dense breast tissue can make it harder to find cancer on a mammogram. Dense breast tissue is also associated with an incr eased risk of breast cancer. This information about the result of the mammogram report was provided to the patient to raise their awareness. Use this report when you speak with the patient about their risks for breast cancer, which includes their family history. At that time, you may recommend additional screening tests (Ultrasoun d or MRI) as these tests may add significant information. A negative radiographic report should not delay biopsy if a dominant or clinically suspicious mass is present. Up to ten percent of cancers are not identified on mammography. A negative report may reinforce clinical impression. Adenosis and dense breasts may obscure an underlying neoplasm. False positive reports average 6 to 10%. Patient will receive a letter notifying them of these results.
== END 2024-07-26 00:44 ==
LOC: DI 00:24
PROVIDERS: PCP Nurse Practitioner Family; Visit Provider Nurse Practitioner Family
DX: Z12.31 Encounter for screening mammogram for malignant neoplasm of breast (principal); R92.8 Other abnormal and inconclusive findings on diagnostic imaging of breast
CPT/HCPCS: 76642; 77061; 77065; G0279

== ENCOUNTER 2024-08-15 17:48 | Observation (INO) | payer MEDICAID, SELFPAY ==
[2024-08-15 17:50] VITALS: BP 130/87; PULSE 116; RESP 15; TEMP 37.3; O2SAT 96
[2024-08-15 17:54] VITALS: BP 130/87; PULSE 116; RESP 15; TEMP 37.3; O2SAT 96
--- NOTE | 2024-08-15 18:00 | DI.CT_ITS ---
Exam(s) CT ABDOMEN PELVIS W EXAM: CT ABDOMEN PELVIS W CLINICAL HISTORY: right lower abdominal pain. TECHNIQUE: Imaging Protocol: Axial computed tomography images with coronal and sagittal reformatted images were created and reviewed CONTRAST MATERIAL: Intravenous: Omnipaque-350 100cc Oral: None COMPARISON: CT CT ABDOMEN PELVIS WO from 06/08/2019 FINDINGS: VISUALIZED LUNG BASES: No nodules nor pleural effusions evident. There are bilateral saline breast i mplants. ABDOMEN: There is no ascites. LIVER: There is a small subcapsular hypodensity in the right hepatic lobe measuring 0.5 cm. Probable cyst or subcapsular benign meningioma. No other significant focal findings seen in the liver. No d ilated intrahepatic ducts. GALLBLADDER/BILIARY: No obvious gallbladder pathology. CBD is not dilated. PANCREAS: No evidence of pancreatic mass nor dilatation of the pancreatic duct. SPLEEN: Spleen is not enlarged. No obvious intrasplenic lesions. Splenic and portal veins are paten t. ADRENALS: There are no significant adrenal masses. KIDNEYS:No cysts evident. No solid renal masses. No calculi nor hydronephrosis.. ABDOMINAL AORTA: Abdominal aorta is not enlarged. LYMPH NODES:There is no retroperitoneal nor paraaortic adenopathy. ABDOMINAL WALL: No evidence of significant anterior abdominal wall nor inguinal hernia. GI: The appendix is abnormally swollen to a diameter of 10-11 mm and exhibits mucosal enhancement. T here is some hyperdense material within the is cecum. Suspect that this is ingested medication (as o pposed to oral contrast). However, this does not outline the entire cecum and there is a filling def ect/possible thickening of the cecal wall at the insertion site of the appendix. There is some peria ppendiceal streaking. No free air. No abscess. No obvious regional lymphadenopathy evident. PELVIS: GI: There is subtle evidence of possible colitis pattern in the region of the splenic flexure of the colon. This does not appear to extend to the sigmoid. There is possibly that this is related to lac k of enteric contrast within the lumen. LYMPH NODES: There is no intrapelvic nor inguinal adenopathy. REPRODUCTIVE: The uterus is enlarged and lobulated. Suspect uterine fibroids. Uterus is retroverted . Cannot differentiate myometrium from endometrium. There is a small amount of fluid in the cul-de- sac. No abnormal adnexal masses suspect that this may be coming from the appendix. URINARY BLADDER: No calculi nor obvious masses evident OSSEOUS: No fractures and no significant osseous lesions. IMPRESSION: 1. Findings are consistent with acute appendicitis. There is also suggestion that there is some wall thickening of the cecum at the appendix base region. Cannot exclude the possibility that this appen dicitis is related to intrinsic cecal pathology. This patient will also require colonoscopy followin g appendectomy, this to rule out neoplasm at this level.. 2. Subtle suggestion of possible colitis pattern at the level the splenic flexure although this may b e exaggerated by lack of oral contrast within the lumen of the colon at this level. There does not a ppear to be involvement of the sigmoid. 3. Enlarged retroverted lobulated uterus. Although this may be related to uterine fibroids, the enti re uterus is of a single density and cannot differentiate the endometrium from the myometrium. Recom mend follow-up pelvic ultrasound. 4. There are no abnormal adnexal masses. There is a small amount of free fluid in the cul-de-sac. I suspect that this may be related to the appendix findings. Findings called by myself to ER physician 08/15/2024 at 7:11 p.m. RADIATION DOSE DELIVERED: 237.34mGy.cm Total DLP DATA REPOSITORY: All CT scans at this facility are submitted to the National Radiology Data Registry (NRDR) Dose Index Registry (DIR) with the [employer] (ACR). RADIATION OPTIMIZATION: All CT scans at this facility use at least one of these dose optimization te chniques: automated exposure control; mA and/or kV adjustment per patient size (includes targeted exa ms where dose is matched to clinical indication); or iterative reconstruction.
--- NOTE | 2024-08-15 18:11 | ED.GENADUL_ITS ---
Discharge Plan Disposition Patient Disposition: Admit to [facility] Condition: Stable Discharge Details Chief Complaint: Abd Prob Clinical Impression: Acute appendicitis Primary Care Provider: Halina Antoine ED Provider: Truman Alfaro [facility] General Mode of arrival: ambulatory . Date/Time Provider Initiated Documentation: 08/15/24 17:52 . Limitations to Documentation: no limitations . Information obtained by: patient . History of Present Illness 63 year old F presents to the emergency department with the chief complaint of Abdominal pain, described as moderate, Quality is described as sharp, and is localized to the abdomen. Patient reports no radiation. Patient started experiencing this day(s) (1) and it has been constant. No relieving factors improve symptom(s), No exacerbating factors reported . Patient notes nausea/vomiting; denies chest pain and shortness of breath. Related Data Allergies Allergy/AdvReac Type Severity Reaction Status Date / Time No Known Allergies Allergy Verified 08/15/24 17:53 General Stated Complaint: Abd Prob FAHEEM: 3 Review of Systems All systems reviewed & are unremarkable except as noted in HPI and below Constitutional Constitutional: Denies chills, Denies fever(s) and Denies weakness Cardiovascular Cardiovascular: Denies chest pain and Denies dyspnea Respiratory Respiratory: Denies cough and Denies dyspnea Gastrointestinal Gastrointestinal: Reports abdominal pain, Reports nausea and Reports vomiting Neurologic Neurologic: Denies weakness Psychiatric Psychiatric: Denies depression Exam Const General: no acute distress Orientation: alert HENHI Head: normal to inspection Ears: external ears normal General nose exam: external nose normal Mouth: moist mucous membranes Eyes General: appearance normal, both eyes and all related structures Neck Neck: normal visual inspection Resp Effort & Inspection: normal respiratory effort and able to speak in complete sentences Cardio Rate: regular rate GI Palpation: soft and tender Skin General skin exam: no rashes or lesions noted Neuro General: patient alert and patient oriented x3 Extrem General: normal to inspection Psych Mental Status: mental status grossly normal Course Vital Signs Vital signs: Vital Signs Temperature 37.3 C 08/15/24 17:50 Pulse 116 H 08/15/24 17:50 Respiratory Rate 08/15/24 17:50 Blood Pressure 130/87 08/15/24 17:50 Pulse Oximetry 96 08/15/24 17:50 Temperature 37.3 C 08/15/24 17:54 Pulse 116 H 08/15/24 17:54 Respiratory Rate 15 08/15/24 17:54 Blood Pressure 130/87 08/15/24 17:54 Blood Pressure Position Sitting 08/15/24 17:54 Pulse Oximetry 96 08/15/24 17:54 Oxygen Delivery Method Room Air 08/15/24 17:54 Oxygen Flow Rate 0 08/15/24 17:54 Medical Decision Making 63-year-old female comes in with nausea vomiting and lower abdominal pain that woke her up from sleep at 1:00 in the morning. She says her nausea is improved but she still has right lower quadrant abdominal pain. She denies any chest pain or difficulty breathing. She is stable on arrival, she does have tenderness in the right lower quadrant. The abdomen is nondistended. Given the location of the pain we will proceed with CBC, CMP, lipase and CT abdomen pelvis to evaluate for entities such as appendicitis. White count of 15 otherwise no significant findings on lab work. CT does confirm appendicitis, patient stable. I discussed with Dr. Gtz from general surgery who will plan to admit the patient and plan for surgery tomorrow. Differential Diagnosis Differential Diagnosis: appendicitis, gastroenteritis Quality:SDSC Health Related Social Needs: No Data to Display [facility] All Active Problems (Updated 08/15/24 @ 19:57 by Truman Alfaro MD) Acute appendicitis (Acute) Anemia (Chronic) 06/2019: Hgb 10.6. Fibroid uterus (Acute) 05/2019. Largest fibroid 10cm. Menorrhagia with regular cycle (Acute) BTB between menses. Family history of colon cancer (Acute) Surgical History (System 03/06/24 @ 09:28 by Nicole Tipton) History of cervical cerclage for 2nd after 25w loss. Dilation and curettage after loss Augmentation mammoplasty (~1993) Family History (System 03/06/24 @ 09:28 by Nicole Tipton) Mother Diabetes Colon cancer Social History (System 03/06/24 @ 09:28 by Nicole Tipton) Smoking/Tobacco Use Status: Never Smoking risk assessment performed?: Yes Alcohol Intake: current Alcohol Intake frequency: a few times a month Drug use: Never Substance use type: does not use Household members: spouse, children and other Details: Amrita Quispe Jr. 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 Son Samuel is adopted. 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 History History 3 Para 2 Hx # Term Pregnancies 2 Multiple births Hx # Pregnancies Ectopic pregnancies AB induced Hx Number of Living Children 2 AB spontaneous 1
[2024-08-15] MEDS: Normal Saline - Diluent 50 ML VIAL IJ (18:33)
[2024-08-15] MEDS: Omnipaque 350 MG/ML 100 ML BTL 75 ML IJ (18:35)
[2024-08-15 18:38] LABS: Bilirubin Negative (Negative); Blood Small (Negative); Clarity Clear (Clear); Glucose Negative (Negative); Ketones Negative (Negative); Leukocyte Esterase Negative (Negative); Nitrite Negative (Negative); Specific Gravity 1.025 (1.005-1.025); Urobilinogen 0.2 mg/dL (Up to 0.2); pH 6.5 (5-8)
[2024-08-15 18:42] LABS: Abs Immature Grans 0.09 10^3/uL (0.0-0.06); Absolute Basophil Count 0.05 10^3/uL (0.0-0.2); Absolute Lymphocyte Count 0.75 10^3/uL (1.2-3.4); Absolute Monocyte Count 0.82 10^3/uL (0.1-0.8); Absolute Neutrophil Count 13.82 10^3/uL (1.2-6.7); Basophils % 0.3 %; HCT 38.3 % (36.0-46.0); HGB 12.5 g/dL (11.2-15.7); Immature Grans % 0.6 %; Lymphocytes % 4.8 %; MCH 26.1 pg (27.0-33.0); MCHC 32.6 % (32.0-36.0); MCV 80 fL (80-95); MPV 9.2 fL (8.0-11.0); Monocytes % 5.3 %; Platelet Count 289 10^3/uL (130-400); RBC 4.79 10^6/uL (3.93-5.22); RDW 13.1 % (11.7-14.6); RDW-SD 37.9 fL; WBC 15.53 10^3/uL (4.4-10.8)
[2024-08-15 18:45] LABS: Bacteria Rare HPF (Negative); C & S Indicated? No; Crystals Negative HPF (Negative); Epithelial Cells Moderate HPF (Negative); Mucus Moderate (Negative); WBC 0-2 HPF (0-5)
[2024-08-15 19:03] LABS: ALT 21 U/L (14-59); AST 12 U/L (15-37); Albumin 3.9 g/dL (3.4-5.0); Alkaline Phosphatase 52 U/L (46-116); Anion Gap 6.9 mmol/L (3-11); BUN 16 mg/dL (7-18); Bilirubin, Direct 0.1 mg/dL (0.0-0.2); Bilirubin, Total 0.57 mg/dL (0.2-1.0); CO2 27.1 mmol/L (21.0-32.0); CREATININE 0.8 mg/dL (0.55-1.02); Calcium 9.3 mg/dL (8.5-10.1); Chloride 106 mmol/L (98-107); Estimated GFR 83.78 (mL/min/1.73m2); Glucose 119 mg/dL (74-106); Lipase 22 U/L (<78); Magnesium 1.6 mg/dL (1.8-2.4); Potassium 3.4 mmol/L (3.5-5.1); Sodium 140 mmol/L (136-145); Total Protein 7.8 g/dL (6.4-8.2)
[2024-08-15 19:12] LABS: COVID-19 PCR Negative (Negative); Influenza A PCR Negative (Negative); Influenza B PCR Negative (Negative); RSV PCR Negative (Negative)
[2024-08-15 19:18] LABS: Source Nasopharynx
[2024-08-15] MEDS: PIPERACILLIN/TAZO 4.5 GM in Normal Saline 100 ML IVPB (19:26)
[2024-08-15] MEDS: Ketorolac 15 MG/ML VIAL IVP (19:27)
[2024-08-15] MEDS: Ondansetron 4 MG/2 ML VIAL IVP (19:27)
[2024-08-15] MEDS: HYDROmorphone 2 MG/ML SYR 1 MG IVP (19:27)
--- NOTE | 2024-08-15 19:51 | SCONE_ITS ---
Date of service: 08/15/24 Time of Service: 20:15 Assessment and Plan Assessment and plan (1) Acute appendicitis: Status: Acute Assessment and plan: 63 yo woman with appendicitis for 18 hours. HD stable. No radiographic evidence of perforation. The family history and the radiographic findings of the cecum warrant pause and consideration. Likely this is just appendicitis, but the possibility of needing a right hemicolectomy will need to be discussed in the morning, just in case the intra- op findings are suspicious for cancer. OVERALL PLAN: NPO IVF IV Abx DVT prophylaxis - HSQ Laparoscopic surgery (exploration, appendectomy, possible R robby) in the AM. History of Present Illness Narrative: 63 yo woman reportedly developed abdominal pain that woke her up out of her sleep last night (about 18 hours ago). It did not get better throughout the day and so she came to the ED for evaluation. CT showed an inflamed appendix. Also concern for possible inflammatory action involving the immediately adjacent cecum which could represent a neoplastic process. Unclear if patient has had a colonoscopy or not. EMR states mother had colon cancer. Reportedly has never had this pain before. PFSH All Active Problems (Updated 08/15/24 @ 19:57 by Truman Alfaro MD) Acute appendicitis (Acute) Anemia (Chronic) 06/2019: Hgb 10.6. Fibroid uterus (Acute) 05/2019. Largest fibroid 10cm. Menorrhagia with regular cycle (Acute) BTB between menses. Family history of colon cancer (Acute) Surgical History (System 03/06/24 @ 09:28 by Nicole Tipton) History of cervical cerclage for 2nd after 25w loss. Dilation and curettage after loss Augmentation mammoplasty (~1993) Family History (System 03/06/24 @ 09:28 by Nicole Tipton) Mother Diabetes Colon cancer Social History (System 03/06/24 @ 09:28 by Nicole Tipton) Smoking/Tobacco Use Status: Never Smoking risk assessment performed?: Yes Alcohol Intake: current Alcohol Intake frequency: a few times a month Drug use: Never Substance use type: does not use Household members: spouse, children and other Details: Amrita Quispe Jr. 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 Son Samuel is adopted. 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 History History 2 3 Para 2 Hx # Term Pregnancies 2 Multiple births Hx # Pregnancies Ectopic pregnancies AB induced Hx Number of Living Children 2 AB spontaneous 1 Exam Narrative Exam Narrative: Per ED provider report: HD stable. Tender abdomen in the RLQ only, otherwise soft and nontender elsewhere. Results Last Vital Signs Temp 99.2 F 08/15/24 17:54 Pulse 116 H 08/15/24 17:54 Resp 15 08/15/24 17:54 BP 130/87 08/15/24 17:54 Pulse Ox 96 08/15/24 17:54 Labs 08/15/24 18:16 08/15/24 18:16 Labs: Laboratory Results - last 24 hr 08/15/24 18:16 WBC 15.53 H RBC 4.79 Hgb 12.5 Hct 38.3 MCV 80 MCH 26.1 L MCHC 32.6 RDW 13.1 Plt Count 289 MPV 9.2 Immature Gran % 0.6 Neutrophils % 89.0 Lymphocytes % 4.8 Monocytes % 5.3 Eosinophils % 0.0 Basophils % 0.3 Nucleated RBC % 0.0 Absolute Neutrophils 13.82 H Absolute Lymphocytes 0.75 L Absolute Monocytes 0.82 H Absolute Eosinophils 0.00 Absolute Basophils 0.05 Sodium 140 Potassium 3.4 L Chloride 106 Carbon Dioxide 27.1 Anion Gap 6.9 BUN 16 Creatinine 0.8 Est GFR (CKD-EPI 2020) 83.78 Glucose 119 H Calcium 9.3 Magnesium 1.6 L Total Bilirubin 0.57 Conjugated Bilirubin 0.1 AST 12 L ALT 21 Alkaline Phosphatase 52 Total Protein 7.8 Albumin 3.9 Lipase 22 Urine Color Yellow Urine Clarity Clear Urine pH 6.5 Ur Specific [place] 1.025 Urine Protein Negative Urine Ketones Negative Urine Blood Small H Urine Nitrite Negative Urine Bilirubin Negative Urine Urobilinogen 0.2 Ur Leukocyte Esterase Negative Urine RBC 5-10 H Urine WBC 0-2 Ur Epithelial Cells Moderate Urine Crystals Negative Urine Bacteria Rare Urine Mucus Moderate Ur Culture Indicated? No Urine Glucose Negative COVID-19 Source Nasopharynx SARS-CoV-2 (PCR) Negative Influenza Type A (PCR) Negative Influenza Type B (PCR) Negative RSV (PCR) Negative
[2024-08-15] MEDS: ACETAMINOPHEN 1,000 MG/100 ML BAG 400 MG IVPB (20:04)
--- NOTE | 2024-08-15 20:46 | W.PCEDHO ---
Registration Status: Primary Language: Preferred Language: ED Information & Data Chief Complaint Abd Prob 08/15/24 18:17 Triage Note 9 of 10 aching pain r side 08/15/24 17:50 of abd. PT nausea and vomiting this morning. pain made worse with palpitation and movement. (This Medical Record has been edited. Action required.) History of cervical cerclage Dilation and curettage Augmentation mammoplasty (~1993) Most Recent Vital Signs Temperature 37.3 C 08/15/24 17:54 Pulse 116 H 08/15/24 17:54 Respiratory Rate 15 08/15/24 17:54 Blood Pressure 130/87 08/15/24 17:54 Blood Pressure Position Sitting 08/15/24 17:54 Pulse Oximetry 96 08/15/24 17:54 Oxygen Delivery Method Room Air 08/15/24 17:54 Oxygen Flow Rate 0 08/15/24 17:54 Allergies No Known Allergies Allergy (Verified 08/15/24 17:53) Active Medications Generic Name Dose Route Start Last Admin Trade Name Freq PRN Reason Stop Dose Admin Acetaminophen 1,000 mg in 100 mls @ 400 mls/hr 08/15/24 19:45 08/15/24 20:31 Ofirmev IVPB Infused Q6H GABI Infusion Iohexol 75 ml 08/15/24 18:45 08/15/24 18:35 Omnipaque 350 Mg/Ml 100 Ml Btl IJ 09/14/24 23:59 75 ml DIRECTED GABI Administration Sodium Chloride 50 ml 08/15/24 18:45 08/15/24 18:33 Normal Saline - Diluent 50 Ml Vial IJ 50 ml .FOR DI USE GABI Administration IV IV Catheter Type [Right Peripheral IV Antecubital] IV Catheter Gauge [Right 18 Antecubital] Diet Orders Category Date Time Status Nothing Per Oral [DIET] Nutrition 08/15/24 Dinner Active Diagnostics 08/15/24 Range/Units 18:16 WBC 15.53 H (4.4-10.8) 10^3/uL RBC 4.79 (3.93-5.22) 10^6/uL Hgb 12.5 (11.2-15.7) g/dL Hct 38.3 (36.0-46.0) % MCV 80 (80-95) fL MCH 26.1 L (27.0-33.0) pg MCHC 32.6 (32.0-36.0) % RDW 13.1 (11.7-14.6) % Plt Count 289 (130-400) 10^3/uL MPV 9.2 (8.0-11.0) fL Immature Gran % 0.6 % Neutrophils % 89.0 % Lymphocytes % 4.8 % Monocytes % 5.3 % Eosinophils % 0.0 % Basophils % 0.3 % Nucleated RBC % 0.0 (0.0-0.3) % Absolute Neutrophils 13.82 H (1.2-6.7) 10^3/uL Absolute Lymphocytes 0.75 L (1.2-3.4) 10^3/uL Absolute Monocytes 0.82 H (0.1-0.8) 10^3/uL Absolute Eosinophils 0.00 (0.0-0.7) 10^3/uL Absolute Basophils 0.05 (0.0-0.2) 10^3/uL Sodium 140 (136-145) mmol/L Potassium 3.4 L (3.5-5.1) mmol/L Chloride 106 (98-107) mmol/L Carbon Dioxide 27.1 (21.0-32.0) mmol/L Anion Gap 6.9 (3-11) mmol/L BUN 16 (7-18) mg/dL Creatinine 0.8 (0.55-1.02) mg/dL Est GFR (CKD-EPI 2020) 83.78 (mL/min/1.73m2) Glucose 119 H (74-106) mg/dL Calcium 9.3 (8.5-10.1) mg/dL Magnesium 1.6 L (1.8-2.4) mg/dL Total Bilirubin 0.57 (0.2-1.0) mg/dL Conjugated Bilirubin 0.1 (0.0-0.2) mg/dL AST 12 L (15-37) U/L ALT 21 (14-59) U/L Alkaline Phosphatase 52 (46-116) U/L Total Protein 7.8 (6.4-8.2) g/dL Albumin 3.9 (3.4-5.0) g/dL Lipase 22 (<78) U/L Urine Color Yellow (Yellow) Urine Clarity Clear (Clear) Urine pH 6.5 (5-8) Ur Specific [place] 1.025 (1.005-1.025) Urine Protein Negative (Neg-Trace) mg/dL Urine Ketones Negative (Negative) mg/dL Urine Blood Small H (Negative) Urine Nitrite Negative (Negative) Urine Bilirubin Negative (Negative) Urine Urobilinogen 0.2 (Up to 0.2) mg/dL Ur Leukocyte Esterase Negative (Negative) Urine RBC 5-10 H (0-2) HPF Urine WBC 0-2 (0-5) HPF Ur Epithelial Cells Moderate (Negative) HPF Urine Crystals Negative (Negative) HPF Urine Bacteria Rare (Negative) HPF Urine Mucus Moderate (Negative) Ur Culture Indicated? No Urine Glucose Negative (Negative) mg/dL COVID-19 Source Nasopharynx SARS-CoV-2 (PCR) Negative (Negative) Influenza Type A (PCR) Negative (Negative) Influenza Type B (PCR) Negative (Negative) RSV (PCR) Negative (Negative) Intake and Output - 24 Hour Total 08/15/24 17:48 thru 08/15/24 20:31 Intake Total 200 Balance 200 Weight 58.967 kg Intake: IV 200 Falls Risk Assessment History of Falls No History 08/15/24 17:54 Contributing Factors No Factors 08/15/24 17:54 Ambulatory Aids Independent 08/15/24 17:54 Tubes/Lines None 08/15/24 17:54 Gait Evaluation No gait disturbance 08/15/24 17:54 Cognition No cognitive impairment 08/15/24 17:54 Fall Total Score 0 08/15/24 17:54 Level of Risk Standard/Low Risk 08/15/24 17:54 Problems (This Medical Record has been edited. Action required.) Acute appendicitis (Acute) v v v v v v v v v Sending and/or Receiving Nurses: Please use comment section below to note any information pertinent to the patient hand-off not included above. Information / Comments: RLQ pain for about a day, vomit x1, nauseous. Appendectomy tomrrow, colonoscopy indicated by CT, Pelvic ultrasound, 18g RAC, got tordol, 4.5 zosyn, 4mg zofran, alert and oriented, independent with ambulation. Report received from: Adele Be RN
[2024-08-15 21:00] VITALS: BP 90/65; PULSE 82; RESP 16; TEMP 37.5; O2SAT 95
[2024-08-15 21:05] VITALS: BP 90/65; PULSE 86; RESP 16; TEMP 37.5; O2SAT 95
[2024-08-15] MEDS: Normal Saline Flush 10 ML SYR IVP (21:27)
[2024-08-15] MEDS: Lactated Ringers 1,000 ML 125 ML IV (21:27)
[2024-08-15] MEDS: Heparin 5,000 UNITS/ML VIAL 5000 UNITS SC (21:45)
[2024-08-16] VITALS (22 sets, daily range): BP systolic 79–113; BP diastolic 45–67; PULSE 61–85; RESP 14–24; TEMP 35.5–36.9; O2SAT 94–99; BMI 22.3
[2024-08-16] MEDS: ACETAMINOPHEN 1,000 MG/100 ML BAG 400 MG IVPB ×2 (01:03→07:53)
[2024-08-16] MEDS: Normal Saline Flush 10 ML SYR IVP ×6 (01:04→20:18)
[2024-08-16] MEDS: PIPERACILLIN/TAZO 3.375 GM in Normal Saline 50 ML IVPB ×4 (01:33→19:32)
[2024-08-16] MEDS: Heparin 5,000 UNITS/ML VIAL 5000 UNITS SC ×3 (03:31→19:32)
[2024-08-16] MEDS: Ketorolac 15 MG/ML VIAL IVP ×2 (05:55→11:34)
[2024-08-16] MEDS: Lactated Ringers 1,000 ML 125 ML IV ×3 (05:57→23:22)
[2024-08-16 06:36] LABS: Abs Immature Grans 0.03 10^3/uL (0.0-0.06); Absolute Basophil Count 0.04 10^3/uL (0.0-0.2); Absolute Eosinophil Count 0.03 10^3/uL (0.0-0.7); Absolute Lymphocyte Count 2.15 10^3/uL (1.2-3.4); Absolute Monocyte Count 0.64 10^3/uL (0.1-0.8); Absolute Neutrophil Count 8.07 10^3/uL (1.2-6.7); Basophils % 0.4 %; Eosinophils % 0.3 %; HCT 31.7 % (36.0-46.0); HGB 10.2 g/dL (11.2-15.7); Immature Grans % 0.3 %; Lymphocytes % 19.6 %; MCH 26.1 pg (27.0-33.0); MCHC 32.2 % (32.0-36.0); MCV 81 fL (80-95); MPV 9.3 fL (8.0-11.0); Monocytes % 5.8 %; Neutrophils % 73.6 %; Platelet Count 216 10^3/uL (130-400); RBC 3.91 10^6/uL (3.93-5.22); RDW 13.4 % (11.7-14.6); RDW-SD 39.7 fL; WBC 10.96 10^3/uL (4.4-10.8)
[2024-08-16 06:58] LABS: Anion Gap 7.4 mmol/L (3-11); BUN 15 mg/dL (7-18); CO2 29.6 mmol/L (21.0-32.0); CREATININE 0.9 mg/dL (0.55-1.02); Calcium 9.1 mg/dL (8.5-10.1); Chloride 108 mmol/L (98-107); Estimated GFR 72.73 (mL/min/1.73m2); Glucose 97 mg/dL (74-106); Potassium 3.5 mmol/L (3.5-5.1); Sodium 145 mmol/L (136-145)
--- NOTE | 2024-08-16 09:31 | INITIAL_ITS ---
Date of service: 08/16/24 Time of Service: 09:31 Care Management Initial Assmt Initial Assessment Reason for Hospitalization: Acute Appendicitis Functional Status/Living Situation Patient Presentation: Anel went to the OR for Laparoscopic Appendectomy and was unavailable to meet with CM. Initial assessment is obtained by chart review and primary RN. 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: N 05/16/24 07:58 Date Asked 08/15/24 08/15/24 17:54 AD Date Reviewed COLST On File at [facility] COLST Date Scanned Code Status Resuscitation Status Full Code Insurance Coverage/Financial Issues Insurance: Medicaid Financial Issues: Care Team Visit Care Team Role Provider Type Halina Antoine Primary Care Provider NURSE PRACTITIONER Truman Alfaro MD Emergency Provider [facility] STAFF PHYSICIAN Parveen Gtz MD Admit Provider [facility] STAFF PHYSICIAN Attending Provider Discharge Potential Discharge Needs: Surgical F/U Appt Anticipated Barriers to Discharge: None Identified Patient/Family Education Needs: Review discharge instructions, discuss Ask Me Three Transportation: Private vehicle Plan: Anel went to the OR for a Laproscopic procedure. Anticipate, pt will discharge home when medically cleared for discharge. Will follow up with community provide rs and discharge plan of care as directed. No new services are anticipated. Family will provide transportation. CM will follow. Social Determinants of Health Screening Social Determinants of Health last assessed: 08/16/24 Will the Patient Participate in the Screening?: Yes Do you worry about having a steady place to live?: no Problems where you live: no known problems In the past 12 months, have you had to go without electric, gas, oil or water in your home?: no Have you or anyone in your house had to go without enough food to eat?: no Has lack of transportation kept you from medical appointments or from doing things needed for daily living?: no Has anyone in your life made you feel unsafe or unsupported?: no How hard is it for you to pay for the very basics like food, housing, medical care, and heating? Would you say it is:: Not hard at all Do you want help finding or keeping work or a job?: I do not need or want help If for any reason you need help with day-to-day activities such as bathing, preparing meals, shopping, managing finances, etc., do you get the help you need?: I get all the help I need How often do you feel lonely or isolated from those around you?: Never Do you speak a language other than [place] at home?: Yes Does the patient want assistance with any of the above?: No Health Related Social Needs Health related social needs: education (Z55.6) PFSH All Active Problems (Updated 08/15/24 @ 19:57 by Truman Alfaro MD) Acute appendicitis (Acute) Anemia (Chronic) 06/2019: Hgb 10.6. Fibroid uterus (Acute) 05/2019. Largest fibroid 10cm. Menorrhagia with regular cycle (Acute) BTB between menses. Family history of colon cancer (Acute) Surgical History (System 03/06/24 @ 09:28 by Nicole Tipton) History of cervical cerclage for 2nd after 25w loss. Dilation and curettage after loss Augmentation mammoplasty (~1993) Family History (System 03/06/24 @ 09:28 by Nicole Tipton) Mother Diabetes Colon cancer Social History (System 03/06/24 @ 09:28 by Nicole Tipton) Smoking/Tobacco Use Status: Never Smoking risk assessment performed?: Yes Alcohol Intake: current Alcohol Intake frequency: a few times a month Drug use: Never Substance use type: does not use Household members: spouse, children and other Details: Noah-Jonathan. S-Jonathan Jr. 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 Son Samuel is adopted. 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 History History 3 Para 2 Hx # Term Pregnancies 2 Multiple births Hx # Pregnancies Ectopic pregnancies AB induced Hx Number of Living Children 2 AB spontaneous 1
--- NOTE | 2024-08-16 12:28 | ANES.PREOP_ITS ---
General Info Date of Service Date Performed: 08/16/24 Height: 5 ft 3 in Weight: 57.153 kg Body Mass Index (BMI): 22.3 Surgical Procedure: Operation Date: 08/16/24 11:40 Proposed Procedure Side Surgeon p Appendectomy Laparoscopic Bon Velasquez MD Meds Allergies and Home Medications Allergies Allergy/AdvReac Type Severity Reaction Status Date / Time No Known Allergies Allergy Verified 08/15/24 17:53 Home Medication ?Medication ?Instructions ?Recorded Unknown [No Known Home Meds] 08/16/24 Current Visit Medications: Current Medications Generic Name Dose Route Start Last Admin Trade Name Freq PRN Reason Stop Dose Admin Heparin Sodium (Porcine) 5,000 units 08/15/24 19:45 08/16/24 12:03 Heparin 5,000 Units/Ml Vial SC 5,000 units Q8H GABI Administration Ringer's Solution 1,000 mls @ 125 mls/hr 08/15/24 19:45 08/16/24 05:57 IV 125 mls/hr INFUSION GABI Administration Acetaminophen 1,000 mg in 100 mls @ 400 mls/hr 08/15/24 19:45 08/16/24 08:15 Ofirmev IVPB Infused Q6H GABI Infusion Piperacillin Sod/Tazobactam 50 mls @ 100 mls/hr 08/15/24 02:00 08/16/24 07:51 Sod 3.375 gm/ Sodium Chloride IVPB 100 mls/hr Q6H GABI Administration IV Miscellaneous Supplies 1 each 08/15/24 18:15 Iv Access IV DIRECTED GABI Influenza Virus Vacc Triv Types A&B 45 mcg 08/16/24 14:00 Flu Vaccine Pf (36mos Up) 45 Mcg/0.5 Ml Syr IM 08/16/24 14:01 .ONCE ONE Ketorolac Tromethamine 15 mg 08/16/24 11:17 08/16/24 11:34 Ketorolac 15 Mg/Ml Vial IVP 08/21/24 11:16 15 mg Q6H PRN PRN Administration Abdominal Pain Morphine Sulfate 2 mg 08/15/24 19:44 Morphine 2 Mg/Ml Syr IVP Q1H PRN PRN Ondansetron HCl 4 mg 08/15/24 19:44 Ondansetron 4 Mg/2 Ml Vial IVP Q4H PRN PRN Sodium Chloride 0 ml 08/15/24 18:01 08/16/24 11:35 Normal Saline Flush 10 Ml Syr IVP 10 ml PRN PRN Administration Sodium Chloride 0 ml 08/15/24 20:00 08/16/24 07:53 Normal Saline Flush 10 Ml Syr IVP 20 ml BID GABI Administration Sodium Chloride 0 ml 08/15/24 18:01 Normal Saline 10 Ml Vial IJ DIRECTED PRN PFSH Active Problems Active Problems: Problem Status Onset Code Acute appendicitis Acute K35.80 Anemia Chronic D64.9 Fibroid uterus Acute D25.9 Menorrhagia with regular cycle Acute N92.0 Family history of colon cancer Acute Z80.0 Surgical History Surgical History (System 03/06/24 @ 09:28 by Nicole Tipton) History of cervical cerclage for 2nd after 25w loss. Dilation and curettage after loss Augmentation mammoplasty (~1993) Tobacco Smoking/Tobacco Use Status: Never Alcohol Alcohol Intake: current Alcohol intake frequency: a few times a month Substance Use Substance use: Never Substance use type: does not use Prental History History 2 3 Para 2 Hx # Term Pregnancies 2 Multiple births Hx # Pregnancies Ectopic pregnancies AB induced Hx Number of Living Children 2 AB spontaneous 1 Vital Signs and Lab Results Vital Signs Most Recent Vital Signs in EMR: Most Recent Vital Signs Temp Pulse Resp BP Pulse Ox 36.1 C L 67 16 101/67 97 08/16/24 08:02 08/16/24 08:02 08/16/24 08:02 08/16/24 08:02 08/16/24 08:02 Lab Results 08/16/24 05:57 08/16/24 05:57 Blood Type / Crossmatch: 2 No Data to Display Complete Blood Count: 2 White Blood Count 10.96 10^3/uL (4.4-10.8) H 08/16/24 05:57 Red Blood Count 3.91 10^6/uL (3.93-5.22) L 08/16/24 05:57 Hemoglobin 10.2 g/dL (11.2-15.7) L 08/16/24 05:57 Hematocrit 31.7 % (36.0-46.0) L 08/16/24 05:57 Platelet Count 216 10^3/uL (130-400) 08/16/24 05:57 Complete Metabolic Panel: 2 Sodium 145 mmol/L (136-145) 08/16/24 05:57 Potassium 3.5 mmol/L (3.5-5.1) 08/16/24 05:57 Chloride 108 mmol/L (98-107) H 08/16/24 05:57 Carbon Dioxide 29.6 mmol/L (21.0-32.0) 08/16/24 05:57 BUN 15 mg/dL (7-18) 08/16/24 05:57 Creatinine 0.9 mg/dL (0.55-1.02) 08/16/24 05:57 Est GFR (CKD-EPI 2020) 72.73 (mL/min/1.73m2) 08/16/24 05:57 Magnesium 1.6 mg/dL (1.8-2.4) L 08/15/24 18:16 Calcium 9.1 mg/dL (8.5-10.1) 08/16/24 05:57 Albumin 3.9 g/dL (3.4-5.0) 08/15/24 18:16 Glucose 97 mg/dL (74-106) 08/16/24 05:57 Liver Function Panel: 2 Alanine Aminotransferase (ALT/SGPT) 21 U/L (14-59) 08/15/24 18: 16 Aspartate Amino Transf (AST/SGOT) 12 U/L (15-37) L 08/15/24 18: 16 Coagulation Panel: 2 No Data to Display Cardiac Panel: 2 No Data to Display Arterial Blood Gas: 2 No Data to Display Venous Blood Gas: 2 No Data to Display Pancreas Panel: 2 Lipase 22 U/L (<78) 08/15/24 18:16 Thyroid Panel: 2 No Data to Display Infectious Disease: 2 Coronavirus (COVID-19)(PCR) Negative (Negative) 08/15/24 18:16 Coronavirus 2019 Source Nasopharynx 08/15/24 18:16 Influenza Virus Type A (PCR) Negative (Negative) 08/15/24 18:1 6 Influenza Virus Type B (PCR) Negative (Negative) 08/15/24 18:1 6 Respiratory Syncytial Virus (PCR) Negative (Negative) 08/15/24 18:16 Blood Cultures: 2 No Data to Display Toxicology Panel: 2 No Data to Display Anesthesia Assessment and Plan Anesthesia History Personal History: No History of Anesthesia Complications Family History: No Family History of Anesthesia Complications Exercise Tolerance Exercise Tolerance: Metabolic Equivalents>4 Pertinent Negatives Pertinent Negatives: No Symptoms of GERD Cardiac & Pulmonary Exam Cardiac Exam: Normal S1/S2 Heart Sounds Pulmonary Exam: Clear Bilateral Breath Sounds Implantable Cardiac Device Does patient have a Pacemaker or an ICD?: No Airway Exam Known Difficult Airway: No Mallampati Class: 2 Mouth Opening: Normal (> 3cm) Thyromental Distance: Greater than 3 cm Neck Range of Motion: Full ROM Neck Circumference: Normal Teeth Condition: Normal Dentition ASA Classification ASA Score: ASA 2 Emergency Case?: No NPO Status NPO Status: NPO Clears >2 hours, Solids >8 hours Anesthesia Plan Resuscitation Status: Full Code Anesthesia Technique: General Anesthesia Airway Planned: Endotracheal Tube Monitors Used: Standard Monitors
--- NOTE | 2024-08-16 14:35 | APP_PTH ---
PATIENT: Anel Degroot LOC: U#:[id number] AGE/SX: 63/F ROOM: 218 RE08/15/[address]: Parveen Gtz : 1960 BED: A DIS: 08/17/2024 SPEC #: [id number] RECD: 08/19/24 12:47 STATUS: SOUT REQ #: [id number] JAY: 08/16/24 14:[address]: Bon Velasquez DEPT: Surgical Specimen RECD BY: Debbie Kong ENTERED: 08/19/24 12:47 SP TYPE: Appendix OTHR DR: Halina Antoine Peter Tissues: 1 - APPENDIX NOT INCIDENTAL Procedures: GROSS AND MICRO LEVEL 3 Comments: [id number]
--- NOTE | 2024-08-16 14:43 | PHA.REVIEW2 ---
Pharmacy Admission Review Admission Clinical Review Admission Pharmacy Review: Acute appendicitis (Acute) No Known Allergies Allergy (Verified 08/15/24 17:53) Resuscitation Status Full Code Height 5 ft 3 in Weight 57.153 kg Comments Comments/Follow Ups: OR today Pharmacy Admission Review Renal Dosing Renal Dosing: BUN 15 mg/dL (7-18) 08/16/24 05:57 Creatinine 0.9 mg/dL (0.55-1.02) 08/16/24 05:57 Medications needing adjustments: Reviewed (CrCl 53.3 mL/min) List of meds needing interventions: Current medications are okay Anticoagulation Anticoagulation: Hgb 10.2 g/dL (11.2-15.7) L D 08/16/24 05:57 Hct 31.7 % (36.0-46.0) L 08/16/24 05:57 Plt Count 216 10^3/uL (130-400) 08/16/24 05:57 Creatinine 0.9 mg/dL (0.55-1.02) 08/16/24 05:57 DVT Prophylaxis: Reviewed Medications: Heparin (q8h) Opiate Usage Evaluate Pain Scale/Pains Meds: Reviewed (morphine 2mg IVP q1h PRN - no doses given) Scheduled Bowel Reg ordered if on Opiates?: No Relevant Labs Relevant Labs: Sodium 145 mmol/L (136-145) 08/16/24 05:57 Potassium 3.5 mmol/L (3.5-5.1) 08/16/24 05:57 Chloride 108 mmol/L (98-107) H 08/16/24 05:57 Magnesium 1.6 mg/dL (1.8-2.4) L 08/15/24 18:16 Electrolytes, C-Reactive P, ESR: Reviewed Cardiac Review BP, HR, EF%: Reviewed (BP/HR WNL) QTc Review QTc: Reviewed (No EKG on file) IV to PO Switch IV Medications: Reviewed (NPO - OR today) Home Meds Home Med List reviewed: Reviewed Relevent Home Meds Not ordered & why?: No known home meds Current Meds Current Medication Order Review: Intervened Comments: Added 2nd PRN to ketorolac order Pharmacy Antibiotic Review Relevant Labs: WBC 10.96 10^3/uL (4.4-10.8) H 08/16/24 05:57 Temperature 36.1 C Pharmacy Antibiotic Activity: Reviewed, no change Comments: Patient is on Zosyn, day 1, for appendicitis. WBC decreased from 15.53 and no cultures pending currently. Comments Comments/Follow Ups: OR today
[2024-08-16] MEDS: Bupivacaine 0.25% Pres-Free W/EPI 30 ML VIAL (14:45)
--- NOTE | 2024-08-16 14:50 | W.PM.OP ---
Operative Note Operative Note PRE-OP DIAGNOSIS: Acute appendicitis POST-OP DIAGNOSIS: same PROCEDURE: Laparoscopic appendectomy SURGEON: oBn Velasquez OPERATIONS PROFESSIONAL: Lolis Voss ANESTHESIA TYPE: Local By Surgeon and General LMA/ETT Refer to Anesthesia Record ESTIMATED BLOOD LOSS: 25 PATHOLOGY: other (Appendix) COMPLICATIONS: None Patient was transported to: PACU Patient's condition: stable Indications: Aarti is a 63-year-old woman who comes to the emergency department with lower abdominal right lower quadrant pain. CT scan demonstrated acute appendicitis. She was brought to the operating room for laparoscopic appendectomy. Findings: Acute appendicitis Procedure Description: After the induction of general anesthesia, I prepped and draped the anterior abdominal wall in the usual fashion. Next, I made an umbilical incision. Then, with a 5 mm optical viewing port, I entered the peritoneum under direct vision. Pneumoperitoneum was established. The camera was gently introduced and the underlying viscera were examined. There was no evidence of any trauma from port placement. Another 5 mm port was placed in the left lower quadrant, and finally, a 12 mm port was placed in the suprapubic position. I then moved the scope into the left lower quadrant, and positioned Anel with some Trendelenburg and left side down. I started by examining the area of the right lower quadrant. I reflected the greater omentum cephalad and identified the terminal ileum. I traced this to the insertion at the cecum and then identified the base of the appendix at the confluence of the cecal tenia. Next, I mobilized the appendix which did appear acutely inflamed. There were some adhesions to the fold of Treves which were easily dissected. I then used sequential firings of the LigaSure to divide the mesoappendix. Once this was complete I divided the appendix with a healthy cuff of cecum using 2 fires of the EMORY stapler. I placed the appendix into an Endo Catch bag and removed through the suprapubic port site I examined the surgical field. The staple line looked fine. There was no contamination or spillage and the surgical field was hemostatic. The suprapubic port was then closed with 0 Vicryl suture using the Sotero Duran wound closure device. The 5 mm port in the left lower quadrant was removed. There was no bleeding. The pneumoperitoneum was evacuated, and the final port in the umbilical position was removed. The surgical sites were irrigated clean, and the skin was reapproximated with subcuticular stitches. Band-Aids were applied, and Anel was allowed awaken from the anesthetic, extubated, and transferred to the recovery unit. Date of Procedure: 08/16/24
[2024-08-16] MEDS: ePHEDrine 25 MG/5 ML Syringe IVP (15:19)
--- NOTE | 2024-08-16 16:23 | ANES.POST_ITS ---
Postoperative Evaluation Date, Time and Location Date Performed: 08/16/24 Time Performed: 16:23 Patient Location: Med/Surg Vital Signs Most Recent Imported Vital Signs: Most Recent Vital Signs Temp Pulse Resp BP Pulse Ox 35.5 C L 69 14 104/65 98 08/16/24 15:56 08/16/24 15:56 08/16/24 15:56 08/16/24 15:56 08/16/24 15:56 Pain Score Most Recent Pain Score: Most Recent Pain Score Pain Level [headache] 3 08/16/24 07:30 Pain Level 5 08/16/24 15:56 Assessment Mental Status: Awake (Alert & Oriented to Patient Baseline) Airway and Respiratory Function: Patent airway with normal (patient baseline) respiratory exam Cardiovascular Function: Hemodynamically Stable Hydration Status: Adequately Hydrated Nausea & Vomiting: No Nausea or Vomiting Pain: Pain is Moderate or Severe Postoperative Pain Management: Pain being addre ssed with medication and Ongoing pain, patient will be managed as an inpatient Peripheral Nerve Block: Patient did not receive a nerve block
[2024-08-16] MEDS: traMADol 50 MG TAB PO ×2 (17:51→23:43)
[2024-08-16] MEDS: Acetaminophen 500 MG TAB 1000 MG PO (23:44)
[2024-08-17] MEDS: PIPERACILLIN/TAZO 3.375 GM in Normal Saline 50 ML IVPB (02:01)
[2024-08-17] MEDS: Heparin 5,000 UNITS/ML VIAL 5000 UNITS SC (02:51)
[2024-08-17] MEDS: Normal Saline Flush 10 ML SYR IVP (02:52)
--- NOTE | 2024-08-17 05:13 | W.PM.DS.N ---
Date of service: 08/17/24 Time of Service: 08:33 DS: Diagnosis Discharge Diagnosis (1) Acute appendicitis: Status: Acute Asessment and Plan: s/p appendectomy; discharge home with outpatient follow up Discharge Plan Disposition Patient Disposition: Home Condition: Good Discharge Details Reason For Visit: Acute Appendicitis Admit Date/Time: 08/15/24 19:44 Admit Provider: Parveen Gtz Attending Provider: Parveen Gtz Primary Care Provider: Halina Antoine Hospital Course Hospital Course: Anel is a 63 year old woman who came to the hospital with abdominal pain. CT scan confirmed the diagnosis of appendicitis and she underwent laparoscopic appendectomy. She tolerated a diet afterwards and pain was controlled and the was discharged home with outpatient follow up. Home Meds and New Rx's Prescriptions: New tramadol 50 mg tablet 50 mg PO Q8H PRNQty: 12 0RF Rx Instructions: take one tablet by mouth up to every 8 hours if needed for severe pain. Discharge Instructions Instructions: Appendectomy, Laparoscopic Surgery (DC) Additional Instructions: Anel, it was great meeting you, although I am sorry you found yourself in the hospital. Hopefully you will make a quick and complete recovery from the appendectomy. As you transition home, you should be up and moving around a little more day by day. Walking is excellent exercise after surgery. Keep your lifting less than about a gallon of milk for the next two weeks and avoid any vigours abdominal exercise like sit ups or twisting like snow shoveling. You might get some bruising around the surgical sites. That is extremely common and nothing to worry about. I will have the office call you on Monday to set up a follow up visit in the [facility] 2 weeks. If you need anything before that, please call at any time. 1. Resume all of your medications. 2. Use heating pads and ice packs as needed for pain. 3. Alternate over the counter tylenol and ibupofen every 6 hours for the next 2 days, then use as needed. Use the prescription for tramadol if needed for more severe pain. Use the prescription for tramadol if needed for more severe pain 4. Leave bandages in place for 24 hours, then remove. 5. Shower with warm soapy water. Pat dry. Use a bandaids if needed to protect your clothing. 6. No soaking or tub baths until I see you in the office. 7. No heavy lifting until I see you in the office. 8. Call the office (or go directly to the emergency room after hours) if you notice any of the following: Develop chills (warm to touch), or if you have a thermometer and your temperature is above 101 Difficulty breathing or difficultly swallowing Persistent vomiting Any bleeding ? exceeding one tablespoon 9. Call your physician if the site where your intravenous was started becomes red, swollen, painful, and warm to touch. Activity:: no heavy lifting Equipment/Supplies:: No Equipment Needed Diet:: As Tolerated DS: Summary Time Spent with Patient providing and/or coordinating discharge services: Less than 30 minutes Status at Discharge Functional status at discharge: independent ambulation Overall status at discharge: patient is progressing back to baseline Mental Status: mental status grossly normal Speech and Movement: speech and movement normal Mood: congruent mood Affect: normal affect Quality:SDOH Health Related Social Needs: Health related social needs education (Z55.6) Exam Psych Mental Status: mental status grossly normal Speech and Movement: speech and movement normal Mood: congruent mood Affect: normal affect DS: Data Vitals/I&O Vitals and I&O: Vital Signs Temperature 98.4 F 08/16/24 23:35 Temperature Source Temporal Artery Scan 08/16/24 23:35 Pulse 85 08/16/24 23:35 Pulse Rhythm Regular 08/15/24 21:05 Pulse 72 08/16/24 15:31 Respiratory Rate 16 08/16/24 23:35 Respiratory Effort Normal, Non-Labored 08/15/24 21:05 Respiratory Depth Normal 08/15/24 21:05 Respiratory Pattern Normal 08/15/24 21:05 Blood Pressure 97/67 L 08/16/24 23:35 Blood Pressure Mean 78 08/16/24 15:30 Blood Pressure Position Sitting 08/15/24 17:54 Pulse Oximetry 94 08/16/24 23:35 Oxygen Delivery Method Room Air 08/16/24 23:35 Oxygen Flow Rate 0 08/16/24 23:35 Pain Level 5 08/16/24 23:44 Comment RN Notified 08/16/24 23:35 Intake & Output 08/16/24 08/16/24 08/17/24 11:59 23:59 11:59 Intake Total 1310.0 / 3420.0 2110 / 3420.0 60 / 60 Output Total 650 / 1325 675 / 1325 425 / 425 Balance 660.0 / 2095.0 1435 / 2095.0 -365 / -365 Weight 126 lb Intake: IV 1310.0 / 3420.0 2110 / 3420.0 60 / 60 Output: Urine 650 / 1300 650 / 1300 425 / 425 Estimated Blood Loss Other: Urine Color Yellow Yellow Yellow Urine Appearance Clear Clear Clear Urine Odor None Normal Normal Emesis Description None Data Completed and Pending Labs on day of discharge: Labs from last 24 hours 08/17/24 08/16/24 05:35 05:57 WBC 10.96 H RBC 3.91 L Hgb 10.2 L D Hct 31.7 L MCV 81 MCH 26.1 L MCHC 32.2 RDW 13.4 Plt Count 216 MPV 9.3 Immature Gran % 0.3 Neutrophils % 73.6 Lymphocytes % 19.6 Monocytes % 5.8 Eosinophils % 0.3 Basophils % 0.4 Nucleated RBC % 0.0 Absolute Neutrophils 8.07 H Absolute Lymphocytes 2.15 Absolute Monocytes 0.64 Absolute Eosinophils 0.03 Absolute Basophils 0.04 Sodium Pending 145 Potassium Pending 3.5 Chloride Pending 108 H Carbon Dioxide Pending 29.6 Anion Gap Pending 7.4 BUN Pending 15 Creatinine Pending 0.9 Est GFR (CKD-EPI 2020) Pending 72.73 Glucose Pending 97 Calcium Pending 9.1 PFSH All Active Problems (Updated 08/15/24 @ 19:57 by Truman Alfaro MD) Acute appendicitis (Acute) Anemia (Chronic) 06/2019: Hgb 10.6. Fibroid uterus (Acute) 05/2019. Largest fibroid 10cm. Menorrhagia with regular cycle (Acute) BTB between menses. Family history of colon cancer (Acute) Surgical History (System 03/06/24 @ 09:28 by Nicole Tipton) History of cervical cerclage for 2nd after 25w loss. Dilation and curettage after loss Augmentation mammoplasty (~1993) Family History (System 03/06/24 @ 09:28 by Nicole Tipton) Mother Diabetes Colon cancer Social History (System 03/06/24 @ 09:28 by Nicole Tipton) Smoking/Tobacco Use Status: Never Smoking risk assessment performed?: Yes Alcohol Intake: current Alcohol Intake frequency: a few times a month Drug use: Never Substance use type: does not use Household members: spouse, children and other Details: Noah-Jonathan. S-Jonathan Jalloh. 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 Son Samuel is adopted. 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 History History 3 Para 2 Hx # Term Pregnancies 2 Multiple births Hx # Pregnancies Ectopic pregnancies AB induced Hx Number of Living Children 2 AB spontaneous 1 Time Spent with Patient Time Spent with Patient: <45 minutes Time was spent: preparing to see the patient(eg.review tests), indepentently interpreting results, counseling the patient and care coordination
[2024-08-17 07:25] LABS: Anion Gap 7.9 mmol/L (3-11); BUN 12 mg/dL (7-18); CO2 27.1 mmol/L (21.0-32.0); CREATININE 0.8 mg/dL (0.55-1.02); Calcium 8.9 mg/dL (8.5-10.1); Chloride 110 mmol/L (98-107); Estimated GFR 83.78 (mL/min/1.73m2); Glucose 156 mg/dL (74-106); Potassium 3.5 mmol/L (3.5-5.1); Sodium 145 mmol/L (136-145)
[2024-08-17 07:43] VITALS: BP 108/70; PULSE 58; RESP 16; TEMP 36.7; O2SAT 98
--- NOTE | 2024-08-17 08:31 | W.PM.PROGNOT ---
Date of Service Date of service: 08/17/24 Time of Service: 08:31 Assessment and Plan Assessment and plan (1) Acute appendicitis: Status: Acute Assessment and plan: I think Anel is doing very well after laparoscopic appendectomy. I will discharge her home today with outpatient follow-up. Subjective Subjective Interval history since last seen: Anel is feeling much better today. She was able to tolerate some diet last night, and has been up and walking around with good pain control. There was a small amount of bleeding from the umbilical incision, but the Band-Aid was changed, and is dry this morning. Exam GI Other: Abdomen is soft, mildly tender in the right lower quadrant. Bandages are clean and dry. Objective Last Vital Signs Temp 98.1 F 08/17/24 07:43 Pulse 58 L 08/17/24 07:43 Resp 16 08/17/24 07:43 BP 108/70 08/17/24 07:43 Pulse Ox 98 08/17/24 07:43 Laboratory Results - last 24 hr 08/17/24 06:14 Sodium 145 Potassium 3.5 Chloride 110 H Carbon Dioxide 27.1 Anion Gap 7.9 BUN 12 Creatinine 0.8 Est GFR (CKD-EPI 2020) 83.78 Glucose 156 H Calcium 8.9 PAWSS Have you Been Recently Intoxicated or Drunk Within the Last 30 days?: No Have you Ever Experienced Previous Episodes of Alcohol Withdrawal?: No Have you ever Experienced Withdrawal Seizures?: No Have you ever Experienced Delirium Tremens(DT)s?: No Have you ever undergone Alcohol Rehabilitation Treatment (i.e, inpt ot outpatient treatment programs)?: No Have you ever Experienced Blackouts?: No Have you ever Combined Alcohol with other Downers within the last 90 days?: No Have you ever Combined Alcohol with any other Substance of Abuse during the last 90 days?: No Positive Blood Alcohol level on Presentation? [PCS.BAL]: No Evidence of Increased Autonomic Activity (i.e. HR>120, tremor, sweating, agitation, nausea)?: No Result: 0 Time Spent with Patient Time Spent with Patient: 25-34 minutes Time was spent: preparing to see the patient(eg.review tests), referring, communicating with other health insurance healthcare representative, indepentently interpreting results and counseling the patient
--- NOTE | 2024-08-17 16:41 | PDOC.CMDIS ---
Date of service: 08/17/24 Time of Service: 16:41 LACE Index Scoring Tool Questions: Length of Stay (in days): 2 Was the patient admitted via the E.D.?: Yes E.D. Visits: 0 Answers: Total Score: 5 Risk of Readmission: Low Risk Care Management Discharge Plan Reason for Hospitalization: acute appendicitis Discharge Plan: Anel returned home today with no new services. She will follow up with her PCP, surgical services, and her discharge plan of care. Patient/Family Education Needs: Review discharge instructions and limitations, discussion of self care needs including ask me three. SDCT Health Related Social Needs: Health related social needs education (Z55.6)
== END 2024-08-17 10:28 | disposition home or self-care (01) ==
LOC: ER 19:57 → MS 21:00
PROVIDERS: Surgery; Admitting Provider Student in an Organized Health Care Education/Training Program; Emergency Provider Emergency Medicine; PCP Nurse Practitioner Family; Visit Provider Student in an Organized Health Care Education/Training Program
PROC: 0DTJ4ZZ Resection of Appendix, Percutaneous Endoscopic Approach (ICD-10-PCS; CPT 44970; principal; 2024-08-16 11:30)
DX: K35.80 Unspecified acute appendicitis (principal); D64.9 Anemia, unspecified; D25.9 Leiomyoma of uterus, unspecified; N92.0 Excessive and frequent menstruation with regular cycle; Z80.0 Family history of malignant neoplasm of digestive organs
CPT/HCPCS: 44970; 36415; 80048; 80053; 83690; 87637; 96361; 96365; 96366; 96367; 96372; 96375; 96376; 99285; 74177; 81003; 81015; 82248; 83735; 85025; 88304; G0378; J0131; J1100; J1171; J1644; J1885; J2003; J2250; J2405; J2543; J2704; J3490